=== PATIENT | male | born 1975 | race Caucasian/White ===

== ENCOUNTER 2016-05-08 20:29 | Emergency (ER) | payer MEDICARE, OTHER ==
[~2016-05-08 20:29] MED LIST: CYMB30CA PO; DULO60 PO; LITH300 PO; QUET200 PO; QUET25 PO; TOPI100 PO; TRAZ100T4 PO
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
[2016-05-08] MEDS ORDERED: ACETAMINOPHEN/HYDROcodone 325 MG/5 MG TAB PO ONE (20:45)
[2016-05-08] MEDS ORDERED: IBUPROFEN 800 MG TAB PO ONE (20:45)
[2016-05-08 21:00] VITALS: BP 157/95; PULSE 105; RESP 16; TEMP 97.8; O2SAT 95
[2016-05-08] MEDS ORDERED: NEUR600T PO (21:19)
[2016-05-08] MEDS ORDERED: SERO300T PO (21:19)
[2016-05-08] MEDS ORDERED: CYMB60CA PO (21:19)
[2016-05-08] MEDS ORDERED: SERO100T PO (21:19)
[2016-05-08] MEDS ORDERED: TRAZ300T2 PO (21:19)
[2016-05-08] MEDS ORDERED: HYDR-3535 PO (21:19)
[2016-05-08] MEDS ORDERED: TOPA100T11 PO (21:19)
[2016-05-08] MEDS ORDERED: CLON1 PO (21:19)
[2016-05-08 21:22] LABS: AUTOMATED NEUTROPHIL # 5.5 TH/MM3 (1.8-7.7); BASOPHIL # 0.1 TH/MM3 (0-0.2); BASOPHIL % 1.2 % (0.0-2.0); EOSINOPHIL # 0.4 TH/MM3 (0-0.4); EOSINOPHIL % 4.5 % (0.0-4.0); HEMATOCRIT 42.3 % (39.0-51.0); LYMPH % 22.6 % (9.0-44.0); LYMPHOCYTE # 2.1 TH/MM3 (1.0-4.8); MEAN CELL VOLUME 89.8 FL (80.0-100.0); MEAN CORPUSCULAR HEMOGLOBIN 32.4 PG (27.0-34.0); MONO % 14.1 % (0.0-8.0); NEUT % 57.6 % (16.0-70.0); PLATELET COUNT 263 TH/MM3 (150-450); RED BLOOD COUNT 4.71 MIL/MM3 (4.50-5.90); RED CELL DISTRIBUTION WIDTH 13.1 % (11.6-17.2); WHITE BLOOD COUNT 9.5 TH/MM3 (4.0-11.0)
[2016-05-08 21:26] LABS: HEMO FLAGS DIFF FINAL
[2016-05-08 21:42] LABS: ANION GAP 9 MEQ/L (5-15)
[2016-05-08 21:45] LABS: ALKALINE PHOSPHATASE 131 U/L (45-117); ALT (GPT) 234 U/L (12-78); AST (GOT) 292 U/L (15-37); BICARBONATE 25.3 MEQ/L (21.0-32.0); BLOOD UREA NITROGEN 9 MG/DL (7-18); CHLORIDE 103 MEQ/L (98-107); GLOMERULAR FILTRATION RATE 94 ML/MIN (>89); POTASSIUM 3.1 MEQ/L (3.5-5.1); SODIUM (NA) 137 MEQ/L (136-145); TOTAL BILIRUBIN ADULT 0.9 MG/DL (0.2-1.0)
[2016-05-08 22:29] LABS: ACETAMINOPHEN LESS THAN 2.0 MCG/ML (10.0-30.0)
[2016-05-08 23:38] VITALS: BP 115/74; PULSE 93; RESP 14; O2SAT 95
[2016-05-08 23:41] LABS: AMPHETAMINE, URINE NEG (NEG); BARBITURATES, URINE NEG (NEG); COCAINE, URINE NEG (NEG)
[2016-05-09 01:15] VITALS: BP 148/83; PULSE 99; RESP 18; TEMP 98.7; O2SAT 97
[2016-05-09 06:21] VITALS: BP 148/68; PULSE 100; RESP 19; TEMP 98.9; O2SAT 98
[2016-05-09 10:05] VITALS: BP 98/54; PULSE 83; RESP 18
[2016-05-09 12:39] VITALS: BP 98/54; PULSE 85; RESP 18
--- NOTE | 2016-05-09 12:48 | PD.CONS ---
Provisional Diagnosis Admission Date [place] I. Substance-induced mood disorder, history of bipolar disorder History of Present Illness Service Psychiatry Consult Requested By EDMD Reason for Consult Michelle norman Primary Care Physician No Primary Care Physician [facility] Patient is a 40-year-old white male well known to us from multiple prior contacts comes here under Martinez act by the [place] [employer] dated 05/08/16 1945 hrs. stating occurrence was found in his room and in [facility] facility unresponsive and had numerous pills molting in his bone along with an unused hypodermic needle next to him on the bed rico Reyna refuse to be transported and because of his refusal in the apparent use of narcotics because it was Michelle acted currently stated that he is prescribed Lortab appears to be abusing narcotics. Patient seen screened in the ED urine toxicology for positive for opiates and marijuana. At the present time patient sitting quietly in his room on J pod nurse Pat present throughout session patient denies suicidality homicidality voices or visions with this case the apparatus was there because her friend was over was going to do the intravenous drug use. Acknowledges frequent use of marijuana that it is medicinal for him. He states [facility], this described various medications at that facility. He states his compliant with appointments and with the medication. At the present time patient does not meet Martinez criteria will lift the Michelle act. As okay by psych for discharge. Patient to continue his own schedule medications, follow-up through [facility] outpatient. Also will make referral to and [facility] for voluntary substance abuse assessment Review of Systems Except as stated in HPI: all other systems reviewed are Neg Past Family Social History Coded Allergies: Prozac (Verified Allergy, Intermediate, 05/08/16) PT STATES "IT MAKES ME SEE A YOUNG GIRL" Toradol (Verified Allergy, Intermediate, Hives, 05/08/16) Beef (Verified Allergy, Unknown, 05/08/16) Penicillin (Verified Adverse Reaction, Severe, VOMITING, 05/08/16) Codeine (Verified Adverse Reaction, Intermediate, Nausea/Vomiting, 05/08/16) Past Medical History Patient medically cleared ED Reported Medications Hydrocodone-Acetaminophen (Lortab)10-325 Mg Tab1 Tab PO Q6H PRN (PAIN) Ref 0 05/08/16 Clonazepam (Klonopin)1 Mg Tab1 Mg PO QID #90 TAB Ref 0 05/08/16 Gabapentin (Neurontin)600 Mg [id number] Mg PO DAILY #60 TAB Ref 0 05/08/16 Trazodone 300 Mg [id number] Mg PO HS #30 TAB Ref 0 05/08/16 Topiramate (Topamax)100 Mg [id number] Mg PO BID #60 TAB Ref 0 05/08/16 Quetiapine (Seroquel)300 Mg [id number] Mg PO HS #30 TAB Ref 0 05/08/16 Quetiapine (Seroquel)100 Mg Rxe441 Mg PO DAILY #30 TAB Ref 0 05/08/[address] (Cymbalta DR)60 Mg Capdr60 Mg PO DAILY #30 CAP Ref 0 05/08/16 Family History Unknown at this time Social History Patient lives in [facility] patient's history of multiple visits to [facility] Patient's Strengths (min. 2) Patient verbal able to access health care Physical Exam Patient seen screened in ED exam reviewed and agreed with Vital Signs Vital Signs Date Time Temp Pulse Resp B/P Pulse Ox O2 Delivery O2 Flow Rate FiO2 05/09/16 10:05 83 18 98/54 Room Air 05/09/16 06:21 98.9 98 Mental Status Examination Alert oriented white male appears some's older than stated age somewhat irritable, and entitled Appearance Slightly disheveled Speech: Unremarkable, Rapid Orientation: x3 Memory: Unremarkable Thought Process: Logical Thought Content: Unremarkable Hallucination Type: None Attention and Concentration: Other (fair) Suicidal Ideation: No Previous Suicide Attempts: No Homicidal Ideation: No Previous Homicide Attempts: No Insight: Poor Judgement: Poor Affect: Other (slight increased range and intensity) Mood: Euthymic (to somewhat irritable) Motor Activity: Normal gait Assessment & Plan Problem List: (1) History of bipolar disorder ICD Code: Z86.59 (2) Substance induced mood disorder ICD Code: F19.94 Assessment & Plan Estimated LOS: days patient does not meet Martinez criteria will lift Michelle act as okay by psych for discharge ability to clear and stable, patient continues own schedule medication follow-up through [facility] outpatient. Also recommend referral to , and referral to [facility] for outpatient voluntary substance abuse assessment Discharge Planning See above Request HC Surrog/Guard Advoc?: No Mack Fang MD May 09, 2016 12:48
== END 2016-05-09 15:31 | disposition home or self-care (01) ==
LOC: NEPC 20:29 → NEPJ 05-09 15:31
DX: F43.20 Adjustment disorder, unspecified (principal); F19.94 Other psychoactive substance use, unspecified with psychoactive substance-induced mood disorder; F41.8 Other specified anxiety disorders; F31.9 Bipolar disorder, unspecified
CPT/HCPCS: 80053; 80307; 85025; 99283; G0480; 80320; 80329

== ENCOUNTER 2016-08-01 18:48 | Emergency (ER) | payer MEDICARE, OTHER ==
[~2016-08-01] VITALS: Ht 180.3 cm; Wt 81.0 kg
[~2016-08-01 18:48] MED LIST changes: +CLON1 PO; -CYMB30CA PO; +CYMB60CA PO; -DULO60 PO; +HYDR-3535 PO; -LITH300 PO; +NEUR600T PO; -QUET200 PO; -QUET25 PO; +SERO100T PO; +SERO300T PO; +TOPA100T11 PO; -TOPI100 PO; -TRAZ100T4 PO; +TRAZ300T2 PO
[2016-08-01 18:57] VITALS: BP 116/78; PULSE 107; RESP 18; TEMP 99.3; O2SAT 97
[2016-08-01] MEDS ORDERED: SODIUM CHLOR 0.9% 1000 ML INJ 1,000 ML IV SCH (19:14)
[2016-08-01 19:15] VITALS: O2SAT 97
[2016-08-01] MEDS ORDERED: ONDANSETRON HCL 4 MG/2 ML VIAL IVP ONE (19:15)
[2016-08-01] MEDS ORDERED: MORPHINE SULFATE 4 MG/ML INJ IV PUSH ONE (19:15)
[2016-08-01] MEDS ORDERED: SODIUM CHLORIDE 0.9% FLUSH 10 ML FLUSH IV FLUSH PRN (19:15)
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
[2016-08-01 19:42] LABS: CHLORIDE 107 MEQ/L (98-107); POTASSIUM 3.2 MEQ/L (3.5-5.1); SODIUM (NA) 143 MEQ/L (136-145)
[2016-08-01 19:43] LABS: AUTOMATED NEUTROPHIL # 5.7 TH/MM3 (1.8-7.7); BASOPHIL # 0.1 TH/MM3 (0-0.2); BASOPHIL % 1.5 % (0.0-2.0); EOSINOPHIL % 0.3 % (0.0-4.0); HEMATOCRIT 39.2 % (39.0-51.0); HEMO FLAGS DIFF FINAL; LYMPH % 18.8 % (9.0-44.0); LYMPHOCYTE # 1.5 TH/MM3 (1.0-4.8); MEAN CELL VOLUME 89.5 FL (80.0-100.0); MEAN CORPUSCULAR HEMOGLOBIN 30.5 PG (27.0-34.0); MONO % 7.2 % (0.0-8.0); NEUT % 72.2 % (16.0-70.0); PLATELET COUNT 258 TH/MM3 (150-450); RED BLOOD COUNT 4.38 MIL/MM3 (4.50-5.90); RED CELL DISTRIBUTION WIDTH 11.8 % (11.6-17.2); WHITE BLOOD COUNT 7.9 TH/MM3 (4.0-11.0)
[2016-08-01 19:47] LABS: ANION GAP 10 MEQ/L (5-15); BICARBONATE 25.7 MEQ/L (21.0-32.0); BLOOD UREA NITROGEN 7 MG/DL (7-18)
[2016-08-01 19:50] LABS: ALT (GPT) 48 U/L (12-78); AST (GOT) 55 U/L (15-37); GLOMERULAR FILTRATION RATE 115 ML/MIN (>89)
[2016-08-01 19:51] LABS: TOTAL BILIRUBIN ADULT 0.6 MG/DL (0.2-1.0)
[2016-08-01 19:53] LABS: ALKALINE PHOSPHATASE 72 U/L (45-117)
[2016-08-01 19:58] LABS: BLOOD, URINE NEG (NEG); GLUCOSE,URINE NEG (NEG); KETONE, URINE 15 mg/dL (NEG); NITRITE,URINE NEG (NEG)
[2016-08-01 20:08] LABS: URINE COLOR YELLOW (YELLW/STRAW)
[2016-08-01 20:10] LABS: COMMENT (UR) CULT NOT INDICATED; CULTURE IF INDICATED CULT NOT INDICATED; RBC, URINE 0-3 /hpf (0-3); SQUAMOUS EPITHELIAL CELL URINE 0-5 /hpf (0-5)
[2016-08-01 20:25] VITALS: BP 113/74; PULSE 72; RESP 16; O2SAT 97
[2016-08-01] MEDS: DICYCLOMINE HCL 20 MG/2 ML VIAL IM ONE (21:00)
--- NOTE | 2016-08-01 21:11 | RADHPO ---
EXAM DATE/TIME: 08/01/2016 20:29 [place] COMPARISON: No previous studies available for comparison. INDICATIONS : Diffuse abdominal pain for three days. IV CONTRAST: 97 cc Omnipaque 350 (iohexol) IV ORAL CONTRAST: No oral contrast ingested. RADIATION DOSE: 8.57 CTDIvol (mGy) MEDICAL HISTORY : Hepatitis C. Renal calculi. SURGICAL HISTORY : None. ENCOUNTER: Initial ACUITY: 3 days PAIN SCALE: 7/10 LOCATION: Abdomen. TECHNIQUE: Volumetric scanning of the abdomen and pelvis was performed. Using automated exposure control and ad justment of the mA and/or kV according to patient size, radiation dose was kept as low as reasonably achievable to obtain optimal diagnostic quality images. FINDINGS: Lung bases clear except minimal dependent atelectasis. No acute findings in the liver, spleen, adrena ls, kidneys or pancreas. No calcified gallstones or biliary ductal dilatation. Again seen are numerou s collaterals in the retroperitoneum probably from chronic occlusion of the IVC. CONCLUSION: 1. No acute findings. 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 Mild fatty liver. Dm Nuno MD on August 01, 2016 at 21:06 Board Certified Radiologist. This report was verified electronically.
[2016-08-01] MEDS ORDERED: BENT20TA PO (21:19)
[2016-08-01] MEDS ORDERED: ZOFR4TAB3 SL (21:20)
[2016-08-01] MEDS ORDERED: IOHEXOL 350 MG/ML 10 ML VIAL (for RAD DIAG) IV ONE (21:21)
[2016-08-01 21:43] VITALS: BP 117/69
== END 2016-08-01 22:00 | disposition home or self-care (01) ==
LOC: PHED 18:48
DX: R10.9 Unspecified abdominal pain (principal); R11.2 Nausea with vomiting, unspecified; M54.9 Dorsalgia, unspecified; M79.604 Pain in right leg; R31.9 Hematuria, unspecified; F17.200 Nicotine dependence, unspecified, uncomplicated; Z87.19 Personal history of other diseases of the digestive system; Z87.448 Personal history of other diseases of urinary system; Z87.39 Personal history of other diseases of the musculoskeletal system and connective tissue; Z86.19 Personal history of other infectious and parasitic diseases; Z86.69 Personal history of other diseases of the nervous system and sense organs; Z86.59 Personal history of other mental and behavioral disorders
CPT/HCPCS: 74177; 80053; 81001; 83690; 85025; 96361; 96372; 96374; 96375; 99284; J0500; J2270; J2405; J7030; Q9967

== ENCOUNTER 2017-11-22 03:16 | Inpatient (IN) ==
--- NOTE | 2017-11-22 05:13 | ED ---
HPI General Chief Complaint: Psychiatric Symptoms Stated Complaint: Psych Time Seen by Provider: 11/23/17 09:25 Source: patient Mode of arrival: ambulatory Limitations: no limitations History of Present Illness HPI Narrative: 41-year-old white male presents emergency department on a voluntary basis for psychological evaluation. Patient states that he has been increasingly depressed after from his and moving to [place] from [place]. He states that he is been for 8 years but has been with his for many more years before this. He had adopted his 's 1-year -old son when the got together. He states that he just found out that his had cheated on him with the biological father of her son. He had moved down to [place] and has been living with his father. Patient has a history of seizure disorder and hepatitis C. He reports that he has been taking his medicines intermittently. He also reports that he started using IV Dilaudid over the last 2 weeks. He allegedly has attempted to overdose on Dilaudid several times. He last injected 3 Dilaudid's earlier yesterday but patient states that really did not do anything. He denies any other ingestions. Patient has had some skin infection to the left wrist from IV drug abuse. He does report subjective fever and chills. No chest pain or shortness of breath. No nausea vomiting. No abdominal pain or urinary symptoms. Symptoms are moderate. Exacerbated by drug abuse and social issues. No alleviating factors. Related Data Previous Rx's Medication Instructions Recorded lithium carbonate 300 mg PO BID #30 cap 11/25/17 mirtazapine 15 mg PO HS #14 tab 11/25/17 quetiapine 25 mg PO TID@08,12,16 #45 tab 11/25/17 quetiapine 100 mg PO HS #14 tab 11/25/17 topiramate [Topamax] 100 mg PO BID #30 tab 11/25/17 Allergies Allergy/AdvReac Type Severity Reaction Status Date / Time fluoxetine Allergy Intermediate Hives Verified 11/22/17 04:49 ketorolac Allergy Intermediate Hives Verified 11/22/17 04:49 penicillin G AdvReac Severe VOMITING Verified 11/22/17 04:49 codeine AdvReac Intermediate Nausea/Vomi Verified 11/22/17 04:49 ting Review of Systems ROS Unobtainable All other systems reviewed negative except as stated in HPI [facility] Medical History Medical History Hepatitis C (Acute) Patient denies medical problems (Acute) Seizures (Acute) Surgical History Surgical History No history of previous surgery (Acute) Social History Social History Substance History: Active Abuse Second Hand Smoke Exposure: No Smoking Status: Current every day smoker Tobacco Type: Cigarettes How Often Do You Have a Drink Containing Alcohol: Never Recent Travel in [facility] within the Last 8 Weeks: No Recent Out of Country Travel within the Last 8 Weeks: No Substance Abuse Detail Opiates: Substance Use Status: Active Route Used Substance Abuse: Intravenously Reason for Use: Hurt Myself Immunization History Tetanus Immunization: <5 Years Hx Influenza Vaccine This Season: No Exam Narrative Exam Narrative: GENERAL: Well-nourished, well-developed patient. SKIN: Warm and dry. Patient has track garnica in both extremities. There is evidence of a skin infection which appears to have opened and drained on the left wrist. It does not look acutely infected at this time. HEAD: Normocephalic and atraumatic. EYES: No scleral icterus. No injection or drainage. ENT: No nasal drainage noted. Mucous membranes pink. Airway patent. NECK: Supple, trachea midline. Moves head freely without obvious discomfort. CARDIOVASCULAR: Regular rate and rhythm without murmurs, gallops, or rubs. RESPIRATORY: Breath sounds equal bilaterally. No accessory muscle use. GASTROINTESTINAL: Abdomen soft, non-tender, nondistended. EXTREMITIES: No cyanosis or edema. BACK: Nontender without obvious deformity. No CVA tenderness. NEURO: Patient is alert and oriented. no sensorimotor deficits. Nonfocal. Normal speech. PSYCH: No delusions. No auditory or visual hallucinations. Course Initial Documented Vital Signs Temperature 98.8 F 11/22/17 03:27 Pulse Rate 104 H 11/22/17 03:27 Respiratory Rate 16 11/22/17 03:27 Blood Pressure 144/83 H 11/22/17 03:27 Pulse Oximetry 98 11/22/17 03:27 Last Documented Vital Signs Temperature 97.6 F 11/25/17 07:43 Pulse Rate 97 H 11/25/17 07:43 Respiratory Rate 18 11/25/17 07:43 Blood Pressure 122/75 11/25/17 07:43 Pulse Oximetry 98 11/25/17 07:43 Medical Decision Making MDM Narrative Medical decision making narrative: We will perform routine laboratory tests for medical clearance. Patient has what appears to be a abscess which is open and drained on his left wrist but does not look acutely infected at this time. Patient seen and examined by me Dr. Dillard at 2130 on 11/22. was informed by nursing that patient wished to leave without seeing the psychiatrist. He tells me he attempted to kill himself with dilaudid last night. States he wishes to see the psychiatrist still and will stay voluntary status. Asks for something to sleep. Differential Diagnosis Differential Diagnosis: MDM: High Differential diagnoses: Schizophrenia, schizoaffective disorder, bipolar, anxiety, depression, adjustment reaction, mood disorder NOS, ODD, depressive disorder NOS, dementia, dementia with agitation, psychosis NOS, substance induced mood disorder, DMDD, Asperger syndrome, infection,electrolyte abnormality, malingering. Mental health screening discussed with the patient. Psychiatric screen ordered. Lab Data Result diagrams: 11/22/17 05:21 11/24/17 05:29 Lab Results 11/22/17 11/22/17 11/22/17 Range/Units 05:21 05:21 05:27 WBC 11.0 (4.0-11.0) th/mm3 RBC 4.45 L (4.50-5.90) mil/mm3 Hgb 13.7 (13.0-17.0) gm/dL Hct 39.4 (39.0-51.0) % MCV 88.4 (80.0-100.0) fL MCH 30.8 (27.0-34.0) pg MCHC 34.8 (32.0-36.0) % RDW 12.8 (11.6-17.2) % Plt Count 355 (150-450) th/mm3 MPV 7.3 (7.0-11.0) fL Neut % (Auto) 51.2 (16.0-70.0) % Lymph % (Auto) 33.5 (9.0-44.0) % [place] % (Auto) 11.8 H (0.0-8.0) % Eos % (Auto) 2.4 (0.0-4.0) % Baso % (Auto) 1.1 (0.0-2.0) % Neut # (Auto) 5.6 (1.8-7.7) th/mm3 Lymph # (Auto) 3.7 (1.0-4.8) th/mm3 [place] # (Auto) 1.3 H (0.0-0.9) th/mm3 Eos # (Auto) 0.3 (0.0-0.4) th/mm3 Baso # (Auto) 0.1 (0.0-0.2) th/mm3 WBC Differential . Differential Comment Auto diff final Sodium 137 (136-145) meq/L Potassium 3.1 L (3.5-5.1) meq/L Chloride 103 (98-107) meq/L Carbon Dioxide 25.4 (21.0-32.0) meq/L Anion Gap 9 (5-15) meq/L BUN 8 (7-18) mg/dL Creatinine 0.81 (0.60-1.30) mg/dL Estimated GFR Greater than 89 (>89) mL/min Random Glucose 93 (74-106) mg/dL Hemoglobin A1c (4.3-6.0) % Calcium 9.2 (8.5-10.1) mg/dL Total Bilirubin 0.5 (0.2-1.0) mg/dL AST 34 (15-37) U/L ALT 41 (12-78) U/L Alkaline Phosphatase 92 (45-117) U/L Total Protein 8.4 H (6.4-8.2) g/dL Albumin 3.6 (3.4-5.0) g/dL Triglycerides (42-150) mg/dL Cholesterol (120-200) mg/dL LDL Cholesterol, Calc (0-99) mg/dL HDL Cholesterol (40.0-60.0) mg/dL Cholesterol/HDL Ratio Ratio TSH 1.060 (0.358-3.740) uIU/mL Urine Opiates Screen Pos H (Neg) Ur Barbiturates Screen Neg (Neg) Ur Amphetamines Screen Neg (Neg) U Benzodiazepines Scrn Neg (Neg) Urine Cocaine Screen Neg (Neg) U Cannabinoids Screen Neg (Neg) Serum Alcohol Less than 3 (0-5) mg/dL 07/26/18 07/26/18 Range/Units 05:29 05:29 WBC (4.0-11.0) th/mm3 RBC (4.50-5.90) mil/mm3 Hgb (13.0-17.0) gm/dL Hct (39.0-51.0) % MCV (80.0-100.0) fL MCH (27.0-34.0) pg MCHC (32.0-36.0) % RDW (11.6-17.2) % Plt Count (150-450) th/mm3 MPV (7.0-11.0) fL Neut % (Auto) (16.0-70.0) % Lymph % (Auto) (9.0-44.0) % [place] % (Auto) (0.0-8.0) % Eos % (Auto) (0.0-4.0) % Baso % (Auto) (0.0-2.0) % Neut # (Auto) (1.8-7.7) th/mm3 Lymph # (Auto) (1.0-4.8) th/mm3 [place] # (Auto) (0.0-0.9) th/mm3 Eos # (Auto) (0.0-0.4) th/mm3 Baso # (Auto) (0.0-0.2) th/mm3 WBC Differential Differential Comment Sodium 141 (136-145) meq/L Potassium 3.1 L (3.5-5.1) meq/L Chloride 106 (98-107) meq/L Carbon Dioxide 26.3 (21.0-32.0) meq/L Anion Gap 9 (5-15) meq/L BUN 6 L (7-18) mg/dL Creatinine 0.74 (0.60-1.30) mg/dL Estimated GFR Greater than 89 (>89) mL/min Random Glucose 99 (74-106) mg/dL Hemoglobin A1c 5.3 (4.3-6.0) % Calcium 8.9 (8.5-10.1) mg/dL Total Bilirubin (0.2-1.0) mg/dL AST (15-37) U/L ALT (12-78) U/L Alkaline Phosphatase (45-117) U/L Total Protein (6.4-8.2) g/dL Albumin (3.4-5.0) g/dL Triglycerides 57 (42-150) mg/dL Cholesterol 168 (120-200) mg/dL LDL Cholesterol, Calc 118 H (0-99) mg/dL HDL Cholesterol 38.4 L (40.0-60.0) mg/dL Cholesterol/HDL Ratio 4.37 Ratio TSH (0.358-3.740) uIU/mL Urine Opiates Screen (Neg) Ur Barbiturates Screen (Neg) Ur Amphetamines Screen (Neg) U Benzodiazepines Scrn (Neg) Urine Cocaine Screen (Neg) U Cannabinoids Screen (Neg) Serum Alcohol (0-5) mg/dL Imaging Data Radiologist's impression: Head CT 11/25/17 00:00 CONCLUSION: Cervical Spine X-Ray 11/25/17 00:18 CONCLUSION: Negative examination. Knee X-Ray 11/25/17 00:18 CONCLUSION: Negative examination Lumbar Spine X-Ray 11/25/17 00:18 CONCLUSION: Negative examination. Thoracic Spine X-Ray 11/25/17 00:18 CONCLUSION: Negative examination. Discharge Plan Discharge Disposition Patient Disposition: 01 Discharge Home Discharge Condition Condition: Fair Discharge Order Discharge Orders: Discharge Order (Routine); Ordered 11/25/17 Ordered By: Mack Fang Discharge Details Anticipated Discharge Date: 11/25/17 Physicians Team ED Provider: Safia Mancilla ED Midlevel Provider: Dm Howard Primary Care Provider: Primary Care Mary Ann,Jeanne Attending Provider: Mack Fang Other Providers: Breezy White ED Status: Left Department Discharge Information Discharge Date/Time: 11/23/17 11:01
[2017-11-22 05:42] LABS: Baso # (Auto) 0.1 th/mm3 (0.0-0.2); Baso % (Auto) 1.1 % (0.0-2.0); Eos # (Auto) 0.3 th/mm3 (0.0-0.4); Eos % (Auto) 2.4 % (0.0-4.0); Hematocrit 39.4 % (39.0-51.0); Hemoglobin 13.7 gm/dL (13.0-17.0); Lymph # (Auto) 3.7 th/mm3 (1.0-4.8); Lymph % (Auto) 33.5 % (9.0-44.0); Mean Corpuscular HGB Conc 34.8 % (32.0-36.0); Mean Corpuscular Hemoglobin 30.8 pg (27.0-34.0); Mean Corpuscular Volume 88.4 fL (80.0-100.0); Mean Platelet Volume 7.3 fL (7.0-11.0); Mono # (Auto) 1.3 th/mm3 (0.0-0.9); Mono % (Auto) 11.8 % (0.0-8.0); Neut # (Auto) 5.6 th/mm3 (1.8-7.7); Neut % (Auto) 51.2 % (16.0-70.0); Platelet Count 355 th/mm3 (150-450); Red Blood Count 4.45 mil/mm3 (4.50-5.90); Red Cell Distribution Width 12.8 % (11.6-17.2)
[2017-11-22 05:48] LABS: Amphetamine Screen,Urine Neg (Neg); Barbiturate Screen,Urine Neg (Neg); Cannabinoid Screen,Urine Neg (Neg); Cocaine Screen,Urine Neg (Neg)
[2017-11-22 05:58] LABS: Opiate Screen,Urine Pos (Neg)
[2017-11-22 06:09] LABS: Albumin 3.6 g/dL (3.4-5.0); Anion Gap 9 meq/L (5-15); Aspartate Aminotransferase 34 U/L (15-37); Blood Urea Nitrogen 8 mg/dL (7-18); Calcium 9.2 mg/dL (8.5-10.1); Carbon Dioxide 25.4 meq/L (21.0-32.0); Chloride 103 meq/L (98-107); Glomerular Filtration Rate Greater Than 89 mL/min (>89); Glucose,Random 93 mg/dL (74-106); Potassium 3.1 meq/L (3.5-5.1); Sodium 137 meq/L (136-145)
[2017-11-22 06:10] LABS: Alanine Aminotransferase 41 U/L (12-78)
[2017-11-22 06:20] LABS: Alkaline Phosphatase 92 U/L (45-117); Total Protein 8.4 g/dL (6.4-8.2)
[2017-11-22] MEDS ORDERED: LORazepam 1 MG Tablet PO ONE (21:30)
--- NOTE | 2017-11-23 10:19 | ED ---
HPI - Psych - General Source: patient Mode of arrival: ambulatory Limitations: no limitations - History of Present Illness MD complaint: suicidal ideation, feels depressed Onset (ago): day(s) Duration: constant History of same: Yes Relieving factors: none Exacerbating factors: drug use, other (medication noncompliance) Context: recent drug abuse Associated psychiatric symptoms: depression Associated symptoms: denies other symptoms Treatments prior to arrival: none If self harm: admits thoughts of self harm - General Chief Complaint: Psychiatric Symptoms Stated Complaint: Psych Time Seen by Provider: 11/23/17 09:25 - History of Present Illness HPI Narrative: History of Present Illness HPI Narrative: 41-year-old white, male, living with his father, on SSI,with history of bipolar disorder, non medication compliant no previous suicide attempts who presents to emergency department on a voluntary basis requesting a psychological evaluation. Patient reports to ED staff states that he has been increasingly depressed after from his and moving to [place] from [place] although this divorce happened approximately 8 years ago. He reports that he has been taking his medicines intermittently. He also reports that he started using IV Dilaudid over the last 2 weeks. He allegedly has attempted to overdose on Dilaudid several times. He last injected 3 Dilaudid's earlier yesterday but patient states that really did not do anything. He denies any other ingestions. EMR reviewed, Current toxicology is positive for opiates. Patient denies he uses opiates as a recreational drug but rather as a suicidal attempt. Patient is seen. he is alert, oriented, speech of normal rate and tone. Irritable mood. Describes feeling depressed, hopeless, suicidal. He also reports that he has been hearing voices that tell him to kill himself. He does not appear internally preoccupied. Most of the questions are answered with " I don't know". he becomes angry when he is pressed for specifics. He has not been taking medications for " months" and reason " I don't know". Reports impaired sleep, low level of energy, fair appetite. remainder of psychiatric ROS is negative. (Marissa León) - Related Data Home Medications Medication Instructions Recorded Confirmed topiramate [Topamax] 100 mg PO BID 11/17/17 11/22/17 clonazepam [Klonopin] 1 mg PO TID 11/22/17 11/22/17 Allergies Allergy/AdvReac Type Severity Reaction Status Date / Time fluoxetine Allergy Intermediate Hives Verified 11/22/17 04:49 ketorolac Allergy Intermediate Hives Verified 11/22/17 04:49 penicillin G AdvReac Severe VOMITING Verified 11/22/17 04:49 codeine AdvReac Intermediate Nausea/Vomi Verified 11/22/17 04:49 ting PMFSH - History History Provided By: Patient - Medical History Medical History: Medical History (Last Reviewed 11/22/17 @ 05:12 by MELVI Gaviria) Hepatitis C Patient denies medical problems Seizures - Surgical History Surgical History: Surgical History (Last Reviewed 11/22/17 @ 05:12 by MELVI Gaviria) No history of previous surgery - Tobacco History Second Hand Smoke Exposure: No Tobacco Use In Past 30 Days: Yes Smoking Status: Current every day smoker Tobacco Type: Cigarettes - Alcohol History How Often Do You Have a Drink Containing Alcohol: Never - Substance Use History Substance History: Active Abuse - Substance Use Type Opiates Status: Active Route Used: Intravenously Frequency: 3 GRAMS TO KILL SELF YESTERDAY Reason for Use: Hurt Myself - Travel History Recent Travel in the [place] Within the Last 8 Weeks: No Recent Travel Out of the Country Within the Last 8 Weeks: No - Immunization History Tetanus Immunization: <5 Years Hx Influenza Vaccine This Season: No Psychiatric History - Psychiatric History Psychiatric Treatment History: History of Psychiatric Treatment, History of Hospitalization in a Psychiatric Facility, History of Community Mental Health Treatment (poor compliance) History of Inpatient Treatment: Yes Firearms in Home: No - Psychiatric History Reports first psychiatric hospitalization t age 14 years after the of his mother. Since patient moved to [place] in 2015 he has had 3 hospitalizations here at [facility] (Marissa León) Physical Exam - General Limitations: no limitations Mental Status Examination Consciousness: Alert Orientation: x4 Motor Activity: Normal gait Speech: Unremarkable Language: Adequate Fund of Knowledge: Adequate Attention and Concentration: Adequate Memory: Unremarkable Mood: Irritable, Other (depressed, easily frustrated) Affect: Irritable Thought Process & Associations: Intact, Logical, Goal directed Thought Content: Appropriate Hallucination Type: Auditory (Reports command type hallucinations that tell him to kill himself. ) Delusion Type: None Suicidal Ideation: Yes Suicidal Plan: Yes (inject Dilaudid) Suicidal Intention: Yes Homicidal Ideation: No Homicidal Plan: No Homicidal Intention: No Insight: Poor Judgment: Impulsive Initial Documented Vital Signs Temperature 98.8 F 11/22/17 03:27 Pulse Rate 104 H 11/22/17 03:27 Respiratory Rate 16 11/22/17 03:27 Blood Pressure 144/83 H 11/22/17 03:27 Pulse Oximetry 98 11/22/17 03:27 Last Documented Vital Signs Temperature 98.7 F 11/22/17 22:12 Pulse Rate 79 11/22/17 22:12 Respiratory Rate 16 11/22/17 22:12 Blood Pressure 131/80 11/22/17 22:12 Pulse Oximetry 99 11/22/17 22:12 MDM - Psych - Diagnosis (1) Bipolar disorder Status: Acute - Lab Data Result diagrams: 11/22/17 05:21 11/22/17 05:21 - [facility] Narrative Medical decision making narrative: History of Present Illness HPI Narrative: 41-year-old white, male, living with his father, on SSI,with history of bipolar disorder, non medication compliant no previous suicide attempts who presents to emergency department on a voluntary basis requesting a psychological evaluation. Patient also reporting that he is hearing voices command type that tell him to harm self. Does not appear internally preoccupied. patient is irritable with poor frustration tolerance. Patient will be admitted to inpatient psychiatric unit for safety , stabilization and for initiation of medication. (Marissa León) - Lab Data Lab Results 11/22/17 11/22/17 11/22/17 Range/Units 05:21 05:21 05:27 WBC 11.0 (4.0-11.0) th/mm3 RBC 4.45 L (4.50-5.90) mil/mm3 Hgb 13.7 (13.0-17.0) gm/dL Hct 39.4 (39.0-51.0) % MCV 88.4 (80.0-100.0) fL MCH 30.8 (27.0-34.0) pg MCHC 34.8 (32.0-36.0) % RDW 12.8 (11.6-17.2) % Plt Count 355 (150-450) th/mm3 MPV 7.3 (7.0-11.0) fL Neut % (Auto) 51.2 (16.0-70.0) % Lymph % (Auto) 33.5 (9.0-44.0) % [place] % (Auto) 11.8 H (0.0-8.0) % Eos % (Auto) 2.4 (0.0-4.0) % Baso % (Auto) 1.1 (0.0-2.0) % Neut # (Auto) 5.6 (1.8-7.7) th/mm3 Lymph # (Auto) 3.7 (1.0-4.8) th/mm3 [place] # (Auto) 1.3 H (0.0-0.9) th/mm3 Eos # (Auto) 0.3 (0.0-0.4) th/mm3 Baso # (Auto) 0.1 (0.0-0.2) th/mm3 WBC Differential . Differential Comment Auto diff final Sodium 137 (136-145) meq/L Potassium 3.1 L (3.5-5.1) meq/L Chloride 103 (98-107) meq/L Carbon Dioxide 25.4 (21.0-32.0) meq/L Anion Gap 9 (5-15) meq/L BUN 8 (7-18) mg/dL Creatinine 0.81 (0.60-1.30) mg/dL Estimated GFR Greater than 89 (>89) mL/min Random Glucose 93 (74-106) mg/dL Calcium 9.2 (8.5-10.1) mg/dL Total Bilirubin 0.5 (0.2-1.0) mg/dL AST 34 (15-37) U/L ALT 41 (12-78) U/L Alkaline Phosphatase 92 (45-117) U/L Total Protein 8.4 H (6.4-8.2) g/dL Albumin 3.6 (3.4-5.0) g/dL TSH 1.060 (0.358-3.740) uIU/mL Urine Opiates Screen Pos H (Neg) Ur Barbiturates Screen Neg (Neg) Ur Amphetamines Screen Neg (Neg) U Benzodiazepines Scrn Neg (Neg) Urine Cocaine Screen Neg (Neg) U Cannabinoids Screen Neg (Neg) Serum Alcohol Less than 3 (0-5) mg/dL
[2017-11-23] MEDS ORDERED: LORazepam 0.5 MG Tablet PO PRN (10:45)
[2017-11-23] MEDS ORDERED: Bisacodyl 10 MG Supp RECTAL PRN (10:45)
[2017-11-23] MEDS: Aluminum/Magnesium/Simethacone Susp 30 ML UDC PO PRN (18:11)
[2017-11-23] MEDS: LORazepam 0.5 MG Tablet PO PRN (21:03)
[2017-11-23] MEDS: Senna/Docusate Sodium 8.6/50 MG Tablet PO SCH (21:03)
[2017-11-23] MEDS: Acetaminophen 325 MG Tablet PO PRN (23:05)
[2017-11-24 07:41] LABS: Anion Gap 9 meq/L (5-15); Blood Urea Nitrogen 6 mg/dL (7-18); Calcium 8.9 mg/dL (8.5-10.1); Carbon Dioxide 26.3 meq/L (21.0-32.0); Chloride 106 meq/L (98-107); Glomerular Filtration Rate Greater Than 89 mL/min (>89); Glucose,Random 99 mg/dL (74-106); Potassium 3.1 meq/L (3.5-5.1); Sodium 141 meq/L (136-145)
[2017-11-24 07:43] LABS: Cholesterol 168 mg/dL (120-200)
[2017-11-24 07:44] LABS: Chol/HDL Ratio 4.37 Ratio; HDL Cholesterol 38.4 mg/dL (40.0-60.0); LDL Cholesterol,Calculated 118 mg/dL (0-99); Triglycerides 57 mg/dL (42-150)
[2017-11-24] MEDS: LORazepam 0.5 MG Tablet PO PRN (09:08)
[2017-11-24] MEDS: Senna/Docusate Sodium 8.6/50 MG Tablet PO SCH (09:08)
[2017-11-24] MEDS ORDERED: Haloperidol Inj 5 MG/ML Ampul IV.PUSH PRN (13:18)
--- NOTE | 2017-11-24 13:33 | P.HPPSY ---
Provisional Diagnosis Admission Date: November 23, 2017 10:39 [place] I.: Bipolar disorder most recent episode depression severe with psychotic features Competence Certification of Person's Competence To Provide Express and Informed Consent I have personally examined Logan Morejon, a person being served at [facility] on, November 24, 2017 1326. Express and informed consent means consent voluntarily given in writing, by a competent person, after sufficient explanation and disclosure of the subject matter involved to enable the person to make a knowing and willful decision without any element of force, fraud, deceit, duress, or other form of constraint or coercion. This person is 18 years of age or older, is not now known to be incompetent to consent to treatment with a guardian advocate, and does not have a health care surrogate or proxy currently making medical treatment decisions. I have found this person to be one of the following: [] Competent to provide express and informed consent, as defined above, for voluntary admission to this facility and is competent to provide express and informed consent for treatment. He/she has the consistent capacity to make well reasoned, willful, and knowing decisions concerning his or her medical or mental health treatment. The person fully and consistently understands the purpose of the admission for examination/placement and is fully capable of personally exercising all rights assured [place] [] Incompetent to provide express and informed consent to voluntary admission, and this is incompetent to provide express and informed consent to treatment. The person must be transferred to involuntary status and a petition for a guardian advocate filed with the Circuit Court. [xxx] Refusing to provide express and informed consent to voluntary admission but is competent to provide express and informed consent for treatment. The person must be discharged or transferred to involuntary status. Form shall be completed within 24 hours of a person's arrival at the receiving facility and filed in the clinical record of each person: 1. Admitted on a voluntary basis 2. Permitted to provide express and informed consent to his/her own treatment 3. Allowed to transfer from involuntary to voluntary status 4. Prior to permitting a person to consent to his or her own treatment after having been previously found incompetent to consent to treatment. History of Present Illness Capacity: Lacks capacity (Patient lacks capacity to sign for admission patient has capacity to sign for medication) History of Present Illness: Patient is a 41-year-old white male who comes here voluntarily with a history of increased depression patient seen screen in the emergency department urine toxicology positive for opiates negative for other screening negative for alcohol. Prior to my seeing patient patient complained of severe anxiety became somewhat intrusive and irritable and demanding of the nurse he was given 0.5 mg Ativan yesterday evening and again this morning. Prior to my seeing him he was quite critical of the dosing in the interval of the medications. Patient seen by me with medical student Penny and in nurse Lesley. Patient sitting quietly in his bed crosslegged in no acute distress. Giving a history of living with his father for the past few months after returning from [place] where he states he was for the past 1-1/2 years helping care for his dying brother who has since . It appears more recently patient has been living with a friend however he now endorses increased depression with both auditory and visual hallucinations increased suicidal ideation intent to the point where he bought Dilaudid on the street and injected himself intravenous with the Dilaudid in an attempt to kill himself. He states he has had depressive episodes similar to this in the past. He states that if offered he would take the suicide pill at this time. He is somewhat vague about past psychiatric history though acknowledges being admitted to the psychiatric unit in [place] within the past year or so but he was somewhat vague about what medications were offered to him. He does reluctantly acknowledge past misuse of cocaine and marijuana, none recently denies any alcohol use. Denies any detox rehab or legal issues related to anything. Of interest upon review of EMR patient was seen here 08/06/17 in the ED and toxicology positive for benzodiazepines cocaine and marijuana. Patient also seen by me in consultation on 05/09/16 urine toxicology 05/08/16 positive for opiates and marijuana. Patient' s had multiple positive urine toxicology is for marijuana and opiates and benzodiazepines prior to this. Patient denies any physical or sexual abuse though he did get into fights with his older brother. Patient states his brother is bipolar. At. Patient's med reconciliation shows scheduled Klonopin and Topamax. Though his urine toxicology is negative for benzodiazepines. Patient became somewhat irritated with me as we discussed medication management in my reluctance to prescribe scheduled benzodiazepines or opiates. I focused on addressing medications that would target his symptoms. He acknowledges a prior being diagnosed with bipolar disorder having manic-type episodes that responded to lithium. We will place the patient on lithium 300 mg twice daily. We will add Seroquel 25 mg 3 times a day 100 mg at bedtime. And Remeron 15 mg at bedtime. There is a possibility of long-term benzodiazepine use we will also order the ciwa protocol. We will refrain from any other benzos or opiates we will offer her Atarax also. Hopeless be fairly short stay and we can resolve this patient's depression suicidality allow him to return to his home with his father with follow-up through [facility] act - Inpatient Certification I certify that the inpatient services were ordered in accordance with Medicare regulations governing the order. This includes certification that hospital inpatient services are reasonable and necessary and in the case of services not specified as inpatient-only under 42 CFR 419.22(n), that they are appropriately provided as inpatient services in accordance to with the 2-midnight benchmark under 43 CFR 412.3(e) I certify that inpatient psychiatric hospital services are medically necessary. Evaluation and treatment and/or diagnostic testing are expected to improve the patient's condition. The patient needs on a daily basis, active treatment furnished directly by or requiring the supervision of inpatient psychiatric facility personnel. Estimated Total Length of Stay (Days): 7 Plans for Post Hospital Care: Home Review of Systems All other systems reviewed negative except as stated in HPI [facility] - History History Provided By: Patient - Medical History Medical History: Medical History (Last Reviewed 11/22/17 @ 05:12 by MELVI Gaviria) Hepatitis C Patient denies medical problems Seizures - Surgical History Surgical History: Surgical History (Last Reviewed 11/22/17 @ 05:12 by MELVI Gaviria) No history of previous surgery - Tobacco History Second Hand Smoke Exposure: No Tobacco Use In Past 30 Days: Yes Smoking Status: Current every day smoker Tobacco Type: Cigarettes - Alcohol History How Often Do You Have a Drink Containing Alcohol: Never - Substance Use History Substance History: Active Abuse - Substance Use Type Other Type: tobacco/cigarrettes Status: Active Route Used: Inhalation Frequency: daily Reason for Use: Calm Down Opiates Status: Active Route Used: Intramuscular Frequency: 3-4 times daily Reason for Use: Hurt Myself - Travel History Recent Travel in the [facility] Within the Last 8 Weeks: No Recent Travel Out of the Country Within the Last 8 Weeks: No - Immunization History Tetanus Immunization: <5 Years Hx Influenza Vaccine This Season: No Quality Measures - Psychiatric History Psychological trauma history: Patient denies physical or sexual abuse Violence risk to others in the last 6 months: Low Violence risk to self in the last 6 months: Patient attempted suicide by overdosing with Dilaudid - Substance Abuse History Drug or alcohol use in the past 12 months: Chronic use of opiates and benzodiazepines and marijuana - Patient Strengths Patient's strengths (minimum of 2): Patient verbal able access healthcare Medications and Allergies Active Medications: Active Medications Acetaminophen (Tylenol) 650 mg PO Q6H PRN PRN Reason: PAIN SCALE 1 TO 10 Last Admin: 11/23/17 23:05 Dose: 650 mg Al Hydrox/Mg Hydrox/Simethicone (Mag-Al Plus Susp Liq) 30 ml PO Q6H PRN PRN Reason: DYSPEPSIA Last Admin: 11/23/17 18:11 Dose: 30 ml Al Hydroxide/Mg Hydroxide (Milk Of Magnesia Liq) 30 ml PO Q12H PRN PRN Reason: Mild Constipation Flumazenil (Romazecon Inj) 0.2 mg IV.PUSH Q1M PRN PRN Reason: OVERSEDATION Haloperidol Lactate (Haldol Inj) 1 mg IV.PUSH Q15M PRN PRN Reason: for severe agitation [place] Carbonate ([place] Carbonate) 300 mg PO BID FELIPA Lorazepam (Ativan) 1 mg PO Q4H PRN PRN Reason: for CIWA 8-10 Lorazepam (Ativan) 2 mg PO Q2H PRN PRN Reason: for CIWA 11-14 Lorazepam (Ativan Inj) 2 mg IV.PUSH Q2H PRN PRN Reason: for CIWA 11-14 Lorazepam (Ativan Inj) 2 mg IV.PUSH Q1H PRN PRN Reason: for CIWA 15-20 Lorazepam (Ativan Inj) 2 mg IV.PUSH Q15M PRN PRN Reason: for CIWA > 20 Lorazepam (Ativan Inj) 1 mg IV.PUSH Q4H PRN PRN Reason: for CIWA 8-10 Mirtazapine (Remeron) 15 mg PO HS FELIPA Quetiapine Fumarate (Seroquel) 25 mg PO TID@08,12,16 FELIPA Quetiapine Fumarate (Seroquel) 100 mg PO HS FELIPA Topiramate (Topamax) 100 mg PO BID FELIPA Allergies Allergy/AdvReac Type Severity Reaction Status Date / Time fluoxetine Allergy Intermediate Hives Verified 11/22/17 04:49 ketorolac Allergy Intermediate Hives Verified 11/22/17 04:49 penicillin G AdvReac Severe VOMITING Verified 11/22/17 04:49 codeine AdvReac Intermediate Nausea/Vomi Verified 11/22/17 04:49 ting Home Medications Medication Instructions Recorded Confirmed Type topiramate [Topamax] 100 mg PO BID 11/17/17 11/22/17 History clonazepam [Klonopin] 1 mg PO TID 11/22/17 11/22/17 History Results - Labs CBC & Chem 7: 11/22/17 05:21 11/24/17 05:29 Labs: Laboratory Results - last 24 hr 11/24/17 05:29 Sodium 141 Potassium 3.1 L Chloride 106 Carbon Dioxide 26.3 Anion Gap 9 BUN 6 L Creatinine 0.74 Estimated GFR Greater than 89 Random Glucose 99 Calcium 8.9 Triglycerides 57 Cholesterol 168 LDL Cholesterol, Calc 118 H HDL Cholesterol 38.4 L Cholesterol/HDL Ratio 4.37 Exam Vital signs: Vital Signs 11/23/17 18:00 11/24/17 00:05 11/24/17 06:11 Temperature 98.7 F 98.6 F Pulse Rate 85 86 Respiratory Rate 18 16 20 Blood Pressure 123/78 141/93 H Pulse Oximetry 96 98 Intake & Output 11/23/17 11/24/17 11/24/17 18:59 06:59 18:59 Intake Total 480 / 480 360 / 360 Balance 480 / 480 360 / 360 Weight 80 kg Intake: Oral 480 / 480 360 / 360 Other: Date of Last Bowel Movement 11/23/17 11/24/17 Weight On Admission 80 kg Narrative: Patient is seen in his bed crosslegged style is in no acute distress, no respiratory distress, no complaints of chest pain, no complaints of abdominal pain, patient moving all 4 extremities without difficulty Mental Status Examination Appearance: Appropriate Consciousness: Alert Orientation: x4 Motor Activity: Normal gait Speech: Unremarkable Language: Adequate Fund of Knowledge: Adequate Attention and Concentration: Adequate Memory: Unremarkable Mood: Oppositional, Irritable, Other (depressed, easily frustrated) Affect: Other (Slight increased range and intensity) Thought Process & Associations: Intact, Logical, Goal directed Thought Content: Appropriate Hallucination Type: Auditory (Reports command type hallucinations that tell him to kill himself. ), Visual Delusion Type: None Suicidal Ideation: Yes (Patient states he would take the suicide pill) Suicidal Plan: Yes (inject Dilaudid) Suicidal Intention: Yes (He states he did take the suicide pill) Homicidal Ideation: No Homicidal Plan: No Homicidal Intention: No Insight: Poor Judgment: Poor Assessment and Plan - Assessment (1) Bipolar disorder Code(s): F31.9 - Bipolar disorder, unspecified Status: Acute (2) Bipolar I disorder, most recent episode depressed, severe w psychosis Code(s): F31.5 - Bipolar disorder, current episode depressed, severe, with psychotic features Status: Acute - Plan Plan: Estimated LOS: 5-7[] days Patient does meet criteria for involuntary inpatient psychiatric hospitalization. We will adjust medications as mentioned above. Also place patient on the ciwa protocol. Hopefully we can be follow-up Justification for Continued Inpatient Stay: At this time patient would decompensate a place to a lower level of care Discharge Planning: Return home follow-up [facility] act Request Healthcare Surrogate/Guardian Advocate?: No
[2017-11-24] MEDS: LORazepam 1 MG Tablet PO PRN ×2 (14:17→21:17)
[2017-11-24] MEDS: Topiramate 100 MG Tablet PO SCH ×2 (14:17→21:17)
[2017-11-24] MEDS: QUEtiapine 25 MG Tablet PO SCH (16:26)
[2017-11-24 16:27] LABS: Hemoglobin A1c 5.3 % (4.3-6.0)
[2017-11-24] MEDS ORDERED: Mirtazapine 15 MG Tablet PO SCH (21:00)
[2017-11-24] MEDS ORDERED: QUEtiapine 100 MG Tablet PO SCH (21:00)
[2017-11-24] MEDS: Aluminum/Magnesium/Simethacone Susp 30 ML UDC PO PRN (21:16)
[2017-11-24] MEDS: Acetaminophen 325 MG Tablet PO PRN (21:16)
--- NOTE | 2017-11-25 01:05 | CT ---
EXAM DATE: 11/25/2017 12:56 AM EDT AGE/SEX: 41 years / Male INDICATIONS: Un-witnessed seizure. CLINICAL DATA: This is the patient's initial encounter. Patient reports that signs and symptoms have been present for 1 day and indicates a pain score of 5/10. MEDICAL/SURGICAL HISTORY: Hepatitis C. None. RADIATION DOSE: 56.35 CTDI (mGy) COMPARISON: [facility], CT BRAIN W/O CONTRAST, 08/10/2017. . TECHNIQUE: CT of the head without contrast. Using automated exposure control and adjustment of the mA and/or kV according to patient size, radiation dose was kept as low as reasonably achievable to ob tain optimal diagnostic quality images. DICOM format image data is available electronically for revi ew and comparison. FINDINGS: Cerebrum: The ventricles are normal for age. No evidence of midline shift, mass lesion, hemorrhage o r acute infarction. No extraaxial fluid collections are seen. Posterior Fossa: The cerebellum and brainstem are intact. The 4th ventricle is midline. The cerebe llopontine angle is unremarkable. Extracranial: The visualized portion of the orbits is intact. Skull: The calvaria is intact. No evidence of skull fracture. 1. No acute intracranial abnormality. . Electronically signed by: Drew Song MD 11/25/2017 1:03 AM EDT
[2017-11-25] MEDS: LORazepam 1 MG Tablet PO PRN (01:31)
[2017-11-25] MEDS: Acetaminophen 325 MG Tablet PO PRN ×2 (02:38→12:18)
--- NOTE | 2017-11-25 02:57 | XR ---
EXAM DATE: 11/25/2017 2:53 AM EDT AGE/SEX: 41 years / Male INDICATIONS: Pain. CLINICAL DATA: This is the patient's initial encounter. Patient reports that signs and symptoms have been present for 1 day and indicates a pain score of 6/10. MEDICAL/SURGICAL HISTORY: . Bipolar disorder. Seizures. Hepatitis C. Renal calculi. None. COMPARISON: [facility], KNEE RIGHT LTD (1 OR 2 VWS), 08/10/2017. . FINDINGS: Bony structures are intact and in normal alignment. Joints are intact without dislocation or signifi cant arthropathy. Osseous density is normal. Soft tissues are unremarkable. No radiopaque foreign bodies seen. CONCLUSION: Negative examination Electronically signed by: Drew Song MD 11/25/2017 2:56 AM EDT
--- NOTE | 2017-11-25 02:58 | XR ---
EXAM DATE: 11/25/2017 2:54 AM EDT AGE/SEX: 41 years / Male INDICATIONS: Pain. CLINICAL DATA: This is the patient's initial encounter. Patient reports that signs and symptoms have been present for 1 day and indicates a pain score of 5/10. MEDICAL/SURGICAL HISTORY: None. None. COMPARISON: [facility] [place], THORACIC SPINE AP/LAT/SW 3V, 11/25/2017. . FINDINGS: The vertebral bodies are in normal alignment without evidence of compression deformity. Bone density is normal for age. Soft tissues are grossly intact. CONCLUSION: Negative examination. Electronically signed by: Drew Song MD 11/25/2017 2:57 AM EDT
--- NOTE | 2017-11-25 02:59 | XR ---
EXAM DATE: 11/25/2017 2:57 AM EDT AGE/SEX: 41 years / Male INDICATIONS: Pain. CLINICAL DATA: This is the patient's initial encounter. Patient reports that signs and symptoms have been present for 1 day and indicates a pain score of 5/10. MEDICAL/SURGICAL HISTORY: None. None. COMPARISON: [facility] [place], LUMBAR SPINE COMPLETE W OBLIQUE, 11/25/2017. . FINDINGS: The vertebral bodies are in normal alignment without evidence of compression deformity. Bone density is normal for age. Soft tissues are grossly intact. CONCLUSION: Negative examination. Electronically signed by: Drew Song MD 11/25/2017 2:58 AM EDT
--- NOTE | 2017-11-25 02:59 | XR ---
EXAM DATE: 11/25/2017 2:56 AM EDT AGE/SEX: 41 years / Male INDICATIONS: Pain. CLINICAL DATA: This is the patient's initial encounter. Patient reports that signs and symptoms have been present for 1 day and indicates a pain score of 6/10. MEDICAL/SURGICAL HISTORY: None. None. COMPARISON: [facility], CT CERVICAL SPINE W/O CONTRAST, 08/10/2017. . FINDINGS: The vertebral bodies are in normal alignment without evidence of compression deformity. Bone density is normal for age. Soft tissues are grossly intact. CONCLUSION: Negative examination. Electronically signed by: Drew Song MD 11/25/2017 2:58 AM EDT
[2017-11-25] MEDS: Topiramate 100 MG Tablet PO SCH ×2 (09:56→10:34)
[2017-11-25] MEDS: QUEtiapine 25 MG Tablet PO SCH ×3 (09:56→12:18)
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
--- NOTE | 2017-11-25 12:18 | ECG ---
Date Performed: 11/24/2017 Time Performed: 12:48:40 PTAGE: 41 years EKG: Sinus rhythm BORDERLINE LEFT AXIS DEVIATION BORDERLINE ECG PREVIOUS TRACING : 02/14/2016 09.29 Since the previous tracing, no significant change noted DOCTOR: Ion Sandoval Interpretating Date/Time 11/25/2017 12:17:44
== END 2017-11-25 12:40 | disposition home or self-care (01) ==
LOC: NEPD 03:16 → NEDA 11-23 10:39 → H260 11-23 11:09
PROVIDERS: ADMIT Psychiatry & Neurology Psychiatry; ATTEND Psychiatry & Neurology Psychiatry

== ENCOUNTER 2017-12-04 19:01 | Observation (INO) ==
[2017-12-04] MEDS ORDERED: Sod Chloride 0.9% Inj 1,000 ML IV.SIG ONE ×2 (19:33→20:52)
[2017-12-04] MEDS ORDERED: Morphine Inj 4 MG/ML Vial IV.PUSH ONE ×2 (19:33→20:52)
--- NOTE | 2017-12-04 19:59 | ED ---
HPI General Chief Complaint: Abdominal Pain Stated Complaint: Abd pain Time Seen by Provider: 12/04/17 19:25 Source: patient Limitations: no limitations History of Present Illness HPI narrative: Patient is see the 1-year-old male, past medical history significant for bipolar disorder, hepatitis C, who presents with complaint of abdominal pain for the last 3 days. He states that he has had gradual onset of right-sided abdominal pain that has been worsening over the last 3 days. He has had nausea and several episodes of nonbilious, nonbloody emesis. He has also had several episodes of watery diarrhea and states that the last episode or 2 did have streaks of blood in it. He has not had fever but he has had chills. No chest pain or shortness of breath. No back pain. This is never happened before. He has not had previous abdominal surgeries. complaint: abdominal pain Onset (ago): day(s) Pain Consistency: constant Location: RUQ and RLQ Severity: moderate Quality: aching, fullness and sharp Radiation: none Migration to: no migration Relieving factors: nothing Exacerbating factors: movement Associated symptoms: nausea, vomiting, diarrhea and chills Treatments prior to arrival: other (tylenol) Related Data Previous Rx's Medication Instructions Recorded topiramate [Topamax] 100 mg PO BID #30 tab 11/25/17 Allergies Allergy/AdvReac Type Severity Reaction Status Date / Time fluoxetine Allergy Intermediate Hives Verified 11/22/17 04:49 ketorolac Allergy Intermediate Hives Verified 11/22/17 04:49 penicillin G AdvReac Severe VOMITING Verified 11/22/17 04:49 codeine AdvReac Intermediate Nausea/Vomi Verified 11/22/17 04:49 ting Review of Systems Except as stated in HPI: all other systems reviewed are negative Constitutional Reports chills and Denies fever(s) Eyes Denies blurry vision ENT Denies nasal congestion Cardiovascular Denies chest pain Respiratory Denies dyspnea Gastrointestinal Reports abdominal pain, Reports diarrhea, Reports nausea and Reports vomiting Genitourinary Denies flank pain Musculoskeletal Denies back pain Integumentary/Breasts Denies rash Neurologic Denies headache(s) Psychiatric Denies confusion Endocrine Reports fatigue PMFSH Medical History Medical History Hepatitis C (Acute) Seizures (Acute) Surgical History Surgical History No history of previous surgery (Acute) Social History Social History Substance History: No History of Abuse Second Hand Smoke Exposure: Yes Smoking Status: Current every day smoker Tobacco Type: Cigarettes How Often Do You Have a Drink Containing Alcohol: Never Recent Travel in [facility] within the Last 8 Weeks: No Recent Out of Country Travel within the Last 8 Weeks: No Immunization History Tetanus Immunization: <5 Years Hx Influenza Vaccine This Season: No Exam Narrative Exam Narrative: GENERAL: Ill-appearing male in no acute distress SKIN: Focused skin assessment warm/dry. No jaundice. No rashes. HEAD: Atraumatic. Normocephalic. EYES: Pupils equal and round. No scleral icterus. No injection or drainage. ENT: No nasal bleeding or discharge. Mucous membranes pink and dry. NECK: Trachea midline. No JVD. CARDIOVASCULAR: Tachycardic but regular. No murmur appreciated. Intact and equal peripheral pulses. RESPIRATORY: No accessory muscle use. Clear to auscultation. Breath sounds equal bilaterally. GASTROINTESTINAL: Abdomen soft, nondistended. Diffuse tenderness throughout most prominent in the right lower quadrant and the right upper quadrant. MUSCULOSKELETAL: No obvious deformities. No clubbing. No cyanosis. No edema. NEUROLOGICAL: Awake and alert. No obvious cranial nerve deficits. Motor grossly within normal limits. Normal speech. PSYCHIATRIC: Appropriate mood and affect; insight and judgment normal. Course Hospital Course: On patient arrival he was placed on a quality assurance monitor chassis and IV was established. He was given morphine and Zofran in addition to a fluid bolus. Labs, CT and ultrasound were ordered. Reevaluation(s) Reevaluation #1: Patient states that his pain has improved but has worsened yet again. He has not had any episodes of emesis nor diarrhea here. Heart rate is in the low 100s. Another liter of fluid and more morphine has been ordered. Time: 20:54 Initial Documented Vital Signs Temperature 98.3 F 12/04/17 19:21 Pulse Rate 111 H 12/04/17 19:21 Respiratory Rate 18 12/04/17 19:21 Blood Pressure 143/85 H 12/04/17 19:21 Pulse Oximetry 99 12/04/17 19:21 Last Documented Vital Signs Temperature 98.3 F 12/04/17 19:21 Pulse Rate 94 H 12/04/17 21:03 Respiratory Rate 16 12/04/17 21:03 Blood Pressure 143/83 H 12/04/17 21:03 Pulse Oximetry 100 12/04/17 21:03 Medical Decision Making MDM Narrative Medical decision making narrative: Patient is a 41-year-old male who presents with complaint of pain, nausea, vomiting, diarrhea for the last several days. He is tachycardic on arrival but afebrile with stable blood pressure. He was given a liter fluid and morphine IV after which he stated he felt better but continued to have pain with a heart rate in the 100s at which time this was repeated. Labs revealed slight hypokalemia but otherwise unremarkable. Ultrasound of the gallbladder was unremarkable. CT of the abdomen and pelvis did not show any acute findings. I discussed the case with Dr. Mac, hospitalist on-call, who agrees to observation admission for further rehydration and pain management. Differential Diagnosis Differential Diagnosis: Differential diagnosis includes acute cholecystitis, cholangitis, colitis, acute appendicitis, acute GI bleed, sepsis, cirrhosis. Medical Records Medical records reviewed: Yes I reviewed the patient's medical records. Review of the records reveal hepatitis C and recent admission to the hospital for bipolar disorder. Lab Data Lab results narrative: Labs consistent with dehydration and slight hypokalemia. Result diagrams: 12/04/17 19:50 12/04/17 19:50 Lab Results 12/04/17 12/04/17 12/04/17 Range/Units 19:50 19:50 19:50 WBC 10.6 (4.0-11.0) th/mm3 RBC 4.39 L (4.50-5.90) mil/mm3 Hgb 13.5 (13.0-17.0) gm/dL Hct 38.5 L (39.0-51.0) % MCV 87.8 (80.0-100.0) fL MCH 30.7 (27.0-34.0) pg MCHC 34.9 (32.0-36.0) % RDW 12.8 (11.6-17.2) % Plt Count 323 (150-450) th/mm3 MPV 7.3 (7.0-11.0) fL Neut % (Auto) 70.0 (16.0-70.0) % Lymph % (Auto) 21.5 (9.0-44.0) % Lee % (Auto) 7.7 (0.0-8.0) % Eos % (Auto) 0.1 (0.0-4.0) % Baso % (Auto) 0.7 (0.0-2.0) % Neut # (Auto) 7.4 (1.8-7.7) th/mm3 Lymph # (Auto) 2.3 (1.0-4.8) th/mm3 Lee # (Auto) 0.8 (0.0-0.9) th/mm3 Eos # (Auto) 0.0 (0.0-0.4) th/mm3 Baso # (Auto) 0.1 (0.0-0.2) th/mm3 WBC Differential . Differential Comment Auto diff final PT 10.7 (9.8-11.6) sec INR 1.1 Ratio APTT 27.6 (24.3-30.1) sec Sodium 142 (136-145) meq/L Potassium 3.2 L (3.5-5.1) meq/L Chloride 109 H (98-107) meq/L Carbon Dioxide 26.1 (21.0-32.0) meq/L Anion Gap 7 (5-15) meq/L BUN 4 L (7-18) mg/dL Creatinine 0.75 (0.60-1.30) mg/dL Estimated GFR Greater than 89 (>89) mL/min Random Glucose 101 (74-106) mg/dL Lactic Acid (0.4-2.0) mmol/L Calcium 9.0 (8.5-10.1) mg/dL Total Bilirubin 0.5 (0.2-1.0) mg/dL AST 31 (15-37) U/L ALT 37 (12-78) U/L Alkaline Phosphatase 89 (45-117) U/L Total Protein 8.1 (6.4-8.2) g/dL Albumin 3.6 (3.4-5.0) g/dL Lipase 106 (73-393) U/L Blood Type Blood Type Recheck Antibody Screen 12/04/17 12/04/17 Range/Units 19:50 19:50 WBC (4.0-11.0) th/mm3 RBC (4.50-5.90) mil/mm3 Hgb (13.0-17.0) gm/dL Hct (39.0-51.0) % MCV (80.0-100.0) fL MCH (27.0-34.0) pg MCHC (32.0-36.0) % RDW (11.6-17.2) % Plt Count (150-450) th/mm3 MPV (7.0-11.0) fL Neut % (Auto) (16.0-70.0) % Lymph % (Auto) (9.0-44.0) % Lee % (Auto) (0.0-8.0) % Eos % (Auto) (0.0-4.0) % Baso % (Auto) (0.0-2.0) % Neut # (Auto) (1.8-7.7) th/mm3 Lymph # (Auto) (1.0-4.8) th/mm3 Lee # (Auto) (0.0-0.9) th/mm3 Eos # (Auto) (0.0-0.4) th/mm3 Baso # (Auto) (0.0-0.2) th/mm3 WBC Differential Differential Comment PT (9.8-11.6) sec INR Ratio APTT (24.3-30.1) sec Sodium (136-145) meq/L Potassium (3.5-5.1) meq/L Chloride (98-107) meq/L Carbon Dioxide (21.0-32.0) meq/L Anion Gap (5-15) meq/L BUN (7-18) mg/dL Creatinine (0.60-1.30) mg/dL Estimated GFR (>89) mL/min Random Glucose (74-106) mg/dL Lactic Acid 1.2 (0.4-2.0) mmol/L Calcium (8.5-10.1) mg/dL Total Bilirubin (0.2-1.0) mg/dL AST (15-37) U/L ALT (12-78) U/L Alkaline Phosphatase (45-117) U/L Total Protein (6.4-8.2) g/dL Albumin (3.4-5.0) g/dL Lipase (73-393) U/L Blood Type A Negative Blood Type Recheck Required Antibody Screen Negative Imaging Data Attestation: I personally reviewed and interpreted this imaging study as follows : My impression: Gallbladder ultrasound is unremarkable. Radiologist's impression: Abdomen/Pelvis CT 12/04/17 19:33 CONCLUSION: 1. No obstruction, inflammatory changes or other acute abnormality. 2. 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 3. Mild atherosclerotic plaque of the abdominal aorta. No aneurysm. 4. Small, benign cysts of the left kidney. Gallbladder Ultrasound 12/04/17 19:33 CONCLUSION: No acute abnormality. Discharge Plan Discharge Disposition Patient Disposition: 30 Still Patient Discharge Condition Condition: Fair Discharge Details Diagnosis: Acute dehydration, Acute hypokalemia, Intractable abdominal pain Physicians Team ED Provider: Ashley Martinez Primary Care Provider: Primary Care Jeanne Reese Rxs /Orders / Referrals /Forms Prescriptions: No Action topiramate [Topamax] 100 mg Tablet 100 mg PO BID Qty: 30 RF: 0 Discharge Interventions Interventions: Vital Signs Last Done: 12/04/17 21:03 Status ED Status: With Doctor
--- NOTE | 2017-12-04 20:10 | US ---
EXAM DATE: 12/04/2017 8:05 PM EDT AGE/SEX: 41 years / Male INDICATIONS: RUQ pain. CLINICAL DATA: This is the patient's initial encounter. Patient reports that signs and symptoms have been present for 3 days and indicates a pain score of 10/10. MEDICAL/SURGICAL HISTORY: Hepatitis C. Seizures. None. COMPARISON: [facility] – [place] - LIVER, 02/22/2016. . MEASUREMENTS: Liver:__ 16.5 cm. Common Bile Duct:__ 4mm. FINDINGS: Liver: Parenchymal echogenicity is within normal limits. No focal hepatic lesion. No intrahepatic bi liary distention. Portal Vein: Normal flow velocity and direction seen in the main portal vein. Common Duct: No intraluminal mass or stone visualized. Gallbladder: Demonstrates no wall thickening or pericholecystic fluid. No stones visualized. Pancreas: The visualized portions are within normal limits Right Kidney: Normal size and echotexture. No focal renal lesion. No hydronephrosis. Other: None CONCLUSION: No acute abnormality. Electronically signed by: Mack Noriega MD 12/04/2017 8:09 PM EDT
[2017-12-04 20:19] LABS: Baso # (Auto) 0.1 th/mm3 (0.0-0.2); Baso % (Auto) 0.7 % (0.0-2.0); Eos % (Auto) 0.1 % (0.0-4.0); Hematocrit 38.5 % (39.0-51.0); Hemoglobin 13.5 gm/dL (13.0-17.0); Lymph # (Auto) 2.3 th/mm3 (1.0-4.8); Lymph % (Auto) 21.5 % (9.0-44.0); Mean Corpuscular HGB Conc 34.9 % (32.0-36.0); Mean Corpuscular Hemoglobin 30.7 pg (27.0-34.0); Mean Corpuscular Volume 87.8 fL (80.0-100.0); Mean Platelet Volume 7.3 fL (7.0-11.0); Mono # (Auto) 0.8 th/mm3 (0.0-0.9); Mono % (Auto) 7.7 % (0.0-8.0); Neut # (Auto) 7.4 th/mm3 (1.8-7.7); Platelet Count 323 th/mm3 (150-450); Red Blood Count 4.39 mil/mm3 (4.50-5.90); Red Cell Distribution Width 12.8 % (11.6-17.2); White Blood Count 10.6 th/mm3 (4.0-11.0)
[2017-12-04 20:20] LABS: Activated Partial Thrombo Time 27.6 sec (24.3-30.1); INR 1.1 Ratio; Prothrombin Time 10.7 sec (9.8-11.6)
[2017-12-04 20:28] LABS: Albumin 3.6 g/dL (3.4-5.0); Anion Gap 7 meq/L (5-15); Aspartate Aminotransferase 31 U/L (15-37); Blood Urea Nitrogen 4 mg/dL (7-18); Carbon Dioxide 26.1 meq/L (21.0-32.0); Chloride 109 meq/L (98-107); Glomerular Filtration Rate Greater Than 89 mL/min (>89); Glucose,Random 101 mg/dL (74-106); Lipase 106 U/L (73-393); Potassium 3.2 meq/L (3.5-5.1); Sodium 142 meq/L (136-145)
[2017-12-04 20:29] LABS: Alanine Aminotransferase 37 U/L (12-78)
[2017-12-04 20:31] LABS: Alkaline Phosphatase 89 U/L (45-117); Total Protein 8.1 g/dL (6.4-8.2)
--- NOTE | 2017-12-04 20:33 | CT ---
EXAM DATE: 12/04/2017 8:26 PM EDT AGE/SEX: 41 years / Male INDICATIONS: Right sided abdominal pain with diarrhea. CLINICAL DATA: This is the patient's initial encounter. Patient reports that signs and symptoms have been present for 1 day and indicates a pain score of 6/10. MEDICAL/SURGICAL HISTORY: Hepatitis C. Seizures None. ORAL CONTRAST: No oral contrast ingested. RADIATION DOSE: 9.24 CTDI (mGy) COMPARISON: [facility], CT ABDOMEN & PELVIS W CONTRAST, 08/01/2016. . TECHNIQUE: Multiple contiguous axial images were obtained through the abdomen and pelvis following b olus infusion of 89 ml Omnipaque 350 (iohexol) nonionic water-soluble contrast as a single exam dos e. No oral contrast ingested. Using automated exposure control and adjustment of the mA and/or kV ac cording to patient size, radiation dose was kept as low as reasonably achievable to obtain optimal di agnostic quality images. DICOM format image data is available electronically for review and comparis on. FINDINGS: The liver, spleen, pancreas, adrenal glands and right kidney all appear normal. There are couple smal l cysts again seen of the left kidney. CT appearance of the gallbladder is within normal limits. No obstruction or acute inflammatory changes are seen of the gastrointestinal tract. The appendix is well-visualized, normal. No free fluid or free air. No lymphadenopathy. Scattered patchy atherosclerotic plaque of the abdominal aorta. No aneurysm. 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 Visualized lung bases are clear. No acute bony abnormality demonstrated. L5 is partially sacralized a nd with chronic degenerative changes. CONCLUSION: 1. No obstruction, inflammatory changes or other acute abnormality. 2. 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 3. Mild atherosclerotic plaque of the abdominal aorta. No aneurysm. 4. Small, benign cysts of the left kidney. Electronically signed by: Mack Noriega MD 12/04/2017 8:32 PM EDT
[2017-12-04 21:08] LABS: Bilirubin,Urine Negative (Negative); Clarity,Urine Clear (Clear); Glucose,Urine (UA) Negative (Negative); Leukocyte Esterase,Urine Negative (Negative); Nitrite,Urine Negative (Negative); PH,Urine 7.5 (5.0-8.5); Urobilinogen,Urine 0.2 mg/dL (Less than 2)
[2017-12-04] MEDS ORDERED: Temazepam 15 MG Capsule PO PRN (21:15)
[2017-12-04] MEDS ORDERED: Bisacodyl 10 MG Supp RECTAL PRN (21:15)
[2017-12-04] MEDS ORDERED: Acetaminophen 325 MG Tablet PO PRN (21:15)
[2017-12-04 21:16] LABS: Color,Urine Straw (Yellw/Straw)
--- NOTE | 2017-12-04 21:17 | P.HPIM ---
History of Present Illness Primary Care Physician: No Primary Care Physician History of Present Illness: This is a 41-year-old male with a PMH of Bipolar Disorder, Hepatitis C, Benzo Dependence, h/o Drug Seeking Behavior and Alcohol Abuse-quit 2wks ago who presented to the ER w/ complaints of abdominal pain, nausea/vomiting and diarrhea x3 days. Denies fever or chills. No sick contacts. On arrival, BP 143/85, HR 111, O2 sat 99% on RA, Afebrile. CBC unremarkable. INR 1.1. Chemistry essentially unremarkable except for K+ 3.2. UA negative. CT Abdomen/ Pelvis with no obstruction, chronic IVC occlusion with collaterals again noted. Gallbladder US negative. S/p Morphine x2 in ER w/ minimal improvement in pain complaints and persistent tachycardia. - Diagnosis (1) Intractable abdominal pain (2) Hypokalemia (3) Acute dehydration Review of Systems PAST FAMILY HISTORY: Reviewed. No h/o DM or CAD All other systems reviewed negative except as stated in HPI PMFSH - History History Provided By: Patient - Medical History Medical History: Medical History (Last Reviewed 12/04/17 @ 20:03 by Ashley Martinez MD) Hepatitis C Seizures - Surgical History Surgical History: Surgical History (Last Reviewed 12/04/17 @ 20:03 by Ashley Martinez MD) No history of previous surgery - Tobacco History Second Hand Smoke Exposure: Yes Tobacco Use In Past 30 Days: Yes Smoking Status: Current every day smoker Tobacco Type: Cigarettes - Alcohol History How Often Do You Have a Drink Containing Alcohol: Never - Substance Use History Substance History: No History of Abuse - Travel History Recent Travel in the [facility] Within the Last 8 Weeks: No Recent Travel Out of the Country Within the Last 8 Weeks: No - Immunization History Tetanus Immunization: <5 Years Hx Influenza Vaccine This Season: No Medications and Allergies Active Medications: Active Medications Sodium Chloride (Ns Flush) 2 ml IV.FLUSH PRN PRN PRN Reason: FLUSH AFTER USING IV ACCESS Allergies Allergy/AdvReac Type Severity Reaction Status Date / Time fluoxetine Allergy Intermediate Hives Verified 11/22/17 04:49 ketorolac Allergy Intermediate Hives Verified 11/22/17 04:49 penicillin G AdvReac Severe VOMITING Verified 11/22/17 04:49 codeine AdvReac Intermediate Nausea/Vomi Verified 11/22/17 04:49 ting Exam Vital signs: Vital Signs 08/05/18 19:21 12/04/17 21:03 Temperature 98.3 F Pulse Rate 111 H 94 H Respiratory Rate 18 16 Blood Pressure 143/85 H 143/83 H Pulse Oximetry 99 100 Intake & Output 12/04/17 12/04/17 12/05/17 06:59 18:59 06:59 Intake Total 1000 / 1000 Balance 1000 / 1000 Weight 81.647 kg Intake: IV 1000 / 1000 NS Inj 1,000 ML @ Wide Open IV. 1000 / 1000 SIG BOLUS ONE Rx#:[id number] Narrative: PE: GENERAL: in no acute distress. HEENT: PERRLA, EOMI. No scleral icterus or conjunctival pallor. No lid lag or facial droop. CARDIOVASCULAR: Regular rate and rhythm. No obvious murmurs to auscultation. No chest tenderness to palpation. RESPIRATORY: No obvious rhonchi or wheezing. Clear to auscultation. Breath sounds equal bilaterally. GASTROINTESTINAL: Abdomen soft, diffuse tenderness to palpation, nondistended. BS normal. MUSCULOSKELETAL: Extremities without clubbing, cyanosis, or edema. No obvious deformities. NEUROLOGICAL: Awake, alert and oriented x4. No focal neurologic deficits. Moving both upper and lower extremities spontaneously. Results - Labs CBC & Chem 7: 12/04/17 19:50 12/04/17 19:50 Labs: Short CBC 12/04/17 Range/Units 19:50 WBC 10.6 (4.0-11.0) th/mm3 Hgb 13.5 (13.0-17.0) gm/dL Hct 38.5 L (39.0-51.0) % Plt Count 323 (150-450) th/mm3 BMP 12/04/17 19:50 Sodium 142 Potassium 3.2 L Chloride 109 H Carbon Dioxide 26.1 BUN 4 L Creatinine 0.75 Calcium 9.0 Liver Function 12/04/17 Range/Units 19:50 Total Bilirubin 0.5 (0.2-1.0) mg/dL AST 31 (15-37) U/L ALT 37 (12-78) U/L Alkaline Phosphatase 89 (45-117) U/L Albumin 3.6 (3.4-5.0) g/dL - Imaging Impressions Abdomen/Pelvis CT 12/04/17 19:33 CONCLUSION: 1. No obstruction, inflammatory changes or other acute abnormality. 2. 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 3. Mild atherosclerotic plaque of the abdominal aorta. No aneurysm. 4. Small, benign cysts of the left kidney. Gallbladder Ultrasound 12/04/17 19:33 CONCLUSION: No acute abnormality. Caprini VTE Risk Assessment Caprini VTE Risk Assessment: No/Low Risk (score <= 1) Caprini Risk Assessment Model: Point Value = 1 Point Value = 2 Point Value = 3 Point Value = 5 Age 41-60 Minor surgery BMI > 25 kg/m2 Swollen legs Varicose veins or History of unexplained or recurrent spontaneous Oral contraceptives or hormone replacement Sepsis (< 1 month) Serious lung disease, including pneumonia (< 1 month) Abnormal pulmonary function Acute myocardial infarction Congestive heart failure (< 1 month) History of inflammatory bowel disease Medical patient at bed rest Age 61-74 Arthroscopic surgery Major open surgery (> 45 min) Laparoscopic surgery (> 45 min) Malignancy Confined to bed (> 72 hours) Immobilizing plaster cast Central venous access Age >= 75 History of VTE Family history of VTE Factor V Leiden Prothrombin [id number] Lupus anticoagulant Anticardiolipin antibodies Elevated serum homocysteine Heparin-induced thrombocytopenia Other congenital or acquired thrombophilia Stroke (< 1 month) Elective arthroplasty Hip, pelvis, or leg fracture Acute spinal cord injury (< 1 month) Prophylaxis Regimen: Total Risk Factor Score Risk Level Prophylaxis Regimen 0-1 Low Early ambulation 2 Moderate Order ONE of the following: *Sequential Compression Device (SCD) *Heparin 5000 units SQ BID 3-4 Higher Order ONE of the following medications: *Heparin 5000 units SQ TID *Enoxaparin/Lovenox 40 mg SQ daily (WT < 150 kg, CrCl > 30 mL/min) *Enoxaparin/Lovenox 30 mg SQ daily (WT < 150 kg, CrCl > 10-29 mL/min) *Enoxaparin/Lovenox 30 mg SQ BID (WT < 150 kg, CrCl > 30 mL/min) AND/OR *Sequential Compression Device (SCD) 5 or more Highest Order ONE of the following medications: *Heparin 5000 units SQ TID (Preferred with Epidurals) *Enoxaparin/Lovenox 40 mg SQ daily (WT < 150 kg, CrCl > 30 mL/min) *Enoxaparin/Lovenox 30 mg SQ daily (WT < 150 kg, CrCl > 10-29 mL/min) *Enoxaparin/Lovenox 30 mg SQ BID (WT < 150 kg, CrCl > 30 mL/min) AND *Sequential Compression Device (SCD) Assessment and Plan - Assessment (1) Intractable abdominal pain Code(s): R10.9 - Unspecified abdominal pain Status: Acute (2) Hypokalemia Code(s): E87.6 - Hypokalemia Status: Acute (3) Acute dehydration Code(s): E86.0 - Dehydration Status: Acute - Plan A/P: 1. Intractable Abd Pain: c/o abdominal pain, nausea/vomiting and diarrhea, likely Gastroenteritis, although caution w/ h/o Drug Seeking Behavior noted extensively in chart. CT Abd/Pelvis w/ no acute findings, Gallbladder US negative, images reviewed. Labs reviewed and essentially unremarkable, LFTs normal. 2. Dehydration: Persistent tachycardia, mildly improved after IVF, will continue w/ IVF for hydration, U/a negative, monitor I/O. 3. Hypokalemia: K+ 3.2, will give K+ replacement and recheck in am. 4. DVT Prophylaxis: SCD/Teds 5. Social work for d/c planning as needed 6. Case discussed w/ ER physician at length, labs/records/imaging reviewed by me.
[2017-12-04 21:18] LABS: Specific Gravity,Urine 1.008 (1.002-1.035)
[2017-12-04] MEDS: Sod Chloride 0.9% Inj 1,000 ML IV.CONT SCH (22:13)
[2017-12-05] MEDS: Morphine Inj 4 MG/ML Vial IV.PUSH PRN ×4 (00:19→20:49)
[2017-12-05 08:51] LABS: Baso # (Auto) 0.1 th/mm3 (0.0-0.2); Baso % (Auto) 1.3 % (0.0-2.0); Eos # (Auto) 0.2 th/mm3 (0.0-0.4); Eos % (Auto) 1.8 % (0.0-4.0); Hemoglobin 12.7 gm/dL (13.0-17.0); Lymph # (Auto) 2.5 th/mm3 (1.0-4.8); Lymph % (Auto) 27.9 % (9.0-44.0); Mean Corpuscular HGB Conc 34.4 % (32.0-36.0); Mean Corpuscular Hemoglobin 30.9 pg (27.0-34.0); Mean Corpuscular Volume 89.7 fL (80.0-100.0); Mean Platelet Volume 7.7 fL (7.0-11.0); Mono # (Auto) 0.7 th/mm3 (0.0-0.9); Mono % (Auto) 7.9 % (0.0-8.0); Neut # (Auto) 5.5 th/mm3 (1.8-7.7); Neut % (Auto) 61.1 % (16.0-70.0); Platelet Count 286 th/mm3 (150-450); Red Blood Count 4.12 mil/mm3 (4.50-5.90); Red Cell Distribution Width 12.8 % (11.6-17.2)
--- NOTE | 2017-12-05 09:20 | P.PN ---
Subjective Interval history: Follow-up for abdominal pain, nausea/vomiting, diarrhea. The patient reports continued intractable constant right-sided abdominal pain. He has difficulty describing his pain. He rates the pain as a 10/10. He denies any vomiting but does report persistent nausea. He has not had a bowel movement since prior to his arrival. Reports subjective fevers and sweats overnight. He is requesting pain medication. He does not recall ever having an EGD. He states he might have had a colonoscopy many years ago but he does not remember the results. He has no other medical complaints at this time. Physical Exam Vital signs: Vital Signs 12/04/17 19:21 12/04/17 21:03 12/04/17 22:10 Temperature 98.3 F Pulse Rate 111 H 94 H 84 Respiratory Rate 18 16 16 Blood Pressure 143/85 H 143/83 H 129/77 Pulse Oximetry 99 100 12/04/17 23:31 12/05/17 00:25 12/05/17 04:00 Temperature 98.6 F 98.5 F Pulse Rate 88 78 Respiratory Rate 16 22 17 Blood Pressure 146/77 H 138/82 Pulse Oximetry 99 98 12/05/17 07:43 Temperature 97.6 F Pulse Rate 73 Respiratory Rate 16 Blood Pressure 119/65 Pulse Oximetry 98 Intake & Output 12/04/17 12/05/17 12/05/17 18:59 06:59 18:59 Intake Total 1000 / 1000 Balance 1000 / 1000 Weight 81.647 kg Intake: IV 1000 / 1000 NS Inj 1,000 ML @ Wide Open IV. 1000 / 1000 SIG BOLUS ONE Rx#:[id number] Other: # Voids 2 Date of Last Bowel Movement 12/05/17 Narrative: GENERAL: Well-nourished, well-developed middle-aged male patient in [facility]. Appears comfortable, lying in bed. SKIN: Warm and dry. No rash. HEENT: Normocephalic. Atraumatic. Pupils equal and round. Mucous membranes pink and moist. CARDIOVASCULAR: Regular rate and rhythm. No murmur appreciated. RESPIRATORY: No accessory muscle use. Clear to auscultation. Breath sounds equal bilaterally. GASTROINTESTINAL: Abdomen soft, nondistended, mild diffuse right-sided abdominal tenderness to palpation. Normoactive bowel sounds x4. MUSCULOSKELETAL: No obvious deformities. Extremities without clubbing, cyanosis , or edema. NEUROLOGICAL: Awake and alert. No obvious cranial nerve deficits. Motor grossly within normal limits. Moving all extremities spontaneously. Normal speech. Results - Labs CBC & Chem 7: 12/05/17 07:45 12/05/17 07:45 Laboratory Results - last 24 hr 12/04/17 12/04/17 12/04/17 19:50 19:50 19:50 WBC 10.6 RBC 4.39 L Hgb 13.5 Hct 38.5 L MCV 87.8 MCH 30.7 MCHC 34.9 RDW 12.8 Plt Count 323 MPV 7.3 Neut % (Auto) 70.0 Lymph % (Auto) 21.5 Frontier % (Auto) 7.7 Eos % (Auto) 0.1 Baso % (Auto) 0.7 Neut # (Auto) 7.4 Lymph # (Auto) 2.3 Frontier # (Auto) 0.8 Eos # (Auto) 0.0 Baso # (Auto) 0.1 WBC Differential . Differential Comment Auto diff final PT 10.7 INR 1.1 APTT 27.6 Sodium 142 Potassium 3.2 L Chloride 109 H Carbon Dioxide 26.1 Anion Gap 7 BUN 4 L Creatinine 0.75 Estimated GFR Greater than 89 Random Glucose 101 Lactic Acid Calcium 9.0 Total Bilirubin 0.5 AST 31 ALT 37 Alkaline Phosphatase 89 Total Protein 8.1 Albumin 3.6 Lipase 106 Urine Color Urine Clarity Urine pH Ur Specific [place] Urine Protein Urine Glucose (UA) Urine Ketones Urine Occult Blood Urine Nitrate Urine Bilirubin Urine Urobilinogen Ur Leukocyte Esterase Micro UA Comment Urine Culture Comments Blood Type Blood Type Recheck Antibody Screen 12/04/17 12/04/17 12/04/17 19:50 19:50 20:50 WBC RBC Hgb Hct MCV MCH MCHC RDW Plt Count MPV Neut % (Auto) Lymph % (Auto) Frontier % (Auto) Eos % (Auto) Baso % (Auto) Neut # (Auto) Lymph # (Auto) Frontier # (Auto) Eos # (Auto) Baso # (Auto) WBC Differential Differential Comment PT INR APTT Sodium Potassium Chloride Carbon Dioxide Anion Gap BUN Creatinine Estimated GFR Random Glucose Lactic Acid 1.2 Calcium Total Bilirubin AST ALT Alkaline Phosphatase Total Protein Albumin Lipase Urine Color Straw Urine Clarity Clear Urine pH 7.5 Ur Specific [place] 1.008 Urine Protein Negative Urine Glucose (UA) Negative Urine Ketones Negative Urine Occult Blood Negative Urine Nitrate Negative Urine Bilirubin Negative Urine Urobilinogen 0.2 Ur Leukocyte Esterase Negative Micro UA Comment Culture not ind Urine Culture Comments Culture not ind Blood Type A Negative Blood Type Recheck Required Antibody Screen Negative 12/05/17 07:45 WBC 9.0 RBC 4.12 L Hgb 12.7 L Hct 37.0 L MCV 89.7 MCH 30.9 MCHC 34.4 RDW 12.8 Plt Count 286 MPV 7.7 Neut % (Auto) 61.1 Lymph % (Auto) 27.9 Frontier % (Auto) 7.9 Eos % (Auto) 1.8 Baso % (Auto) 1.3 Neut # (Auto) 5.5 Lymph # (Auto) 2.5 Frontier # (Auto) 0.7 Eos # (Auto) 0.2 Baso # (Auto) 0.1 WBC Differential . Differential Comment Auto diff final PT INR APTT Sodium Potassium Chloride Carbon Dioxide Anion Gap BUN Creatinine Estimated GFR Random Glucose Lactic Acid Calcium Total Bilirubin AST ALT Alkaline Phosphatase Total Protein Albumin Lipase Urine Color Urine Clarity Urine pH Ur Specific [place] Urine Protein Urine Glucose (UA) Urine Ketones Urine Occult Blood Urine Nitrate Urine Bilirubin Urine Urobilinogen Ur Leukocyte Esterase Micro UA Comment Urine Culture Comments Blood Type Blood Type Recheck Antibody Screen - Imaging Impressions Abdomen/Pelvis CT 12/04/17 19:33 CONCLUSION: 1. No obstruction, inflammatory changes or other acute abnormality. 2. 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 3. Mild atherosclerotic plaque of the abdominal aorta. No aneurysm. 4. Small, benign cysts of the left kidney. Gallbladder Ultrasound 12/04/17 19:33 CONCLUSION: No acute abnormality. Assessment and Plan - Assessment (1) Intractable abdominal pain Code(s): R10.9 - Unspecified abdominal pain Status: Acute (2) Hypokalemia Code(s): E87.6 - Hypokalemia Status: Acute (3) Acute dehydration Code(s): E86.0 - Dehydration Status: Acute - Plan 41-year-old male with a PMH of Bipolar Disorder, Hepatitis C, Benzo Dependence, h/o Drug Seeking Behavior and Alcohol Abuse-quit 2wks ago who presented to the ER w/ complaints of abdominal pain, nausea/vomiting and diarrhea x3 days. Intractable Abd Pain: c/o abdominal pain, nausea/vomiting and diarrhea, likely Gastroenteritis, although caution w/ h/o Drug Seeking Behavior noted extensively in chart. -CT Abd/Pelvis w/ no acute findings, Gallbladder US negative, images reviewed. -Labs reviewed and essentially unremarkable, LFTs/Lipase normal. -Continue supportive treatment with IVF, antiemetics, and pain control prn -Keep NPO -Check stool studies if any further diarrhea -Patient still with intractable pain, no clear etiology, will consult GI Dehydration: Persistent tachycardia, mildly improved after IVF. -Continue w/ IVF for hydration -U/a negative -monitor I/O. -tachycardia resolved Hypokalemia: K+ 3.2. -Given po KCl replacement -Monitor and replace electrolytes as needed DVT Prophylaxis: SCD/Teds Discharge Planning: Discharge pending further clinical improvement and evaluation by GI.
[2017-12-05 09:21] LABS: Albumin 3.1 g/dL (3.4-5.0); Anion Gap 7 meq/L (5-15); Aspartate Aminotransferase 29 U/L (15-37); Blood Urea Nitrogen 4 mg/dL (7-18); Calcium 8.7 mg/dL (8.5-10.1); Chloride 111 meq/L (98-107); Glomerular Filtration Rate Greater Than 89 mL/min (>89); Glucose,Random 89 mg/dL (74-106); Potassium 3.3 meq/L (3.5-5.1); Sodium 143 meq/L (136-145)
[2017-12-05 09:22] LABS: Alanine Aminotransferase 33 U/L (12-78)
[2017-12-05 09:24] LABS: Alkaline Phosphatase 82 U/L (45-117); Total Protein 7.2 g/dL (6.4-8.2)
[2017-12-05] MEDS: Senna/Docusate Sodium 8.6/50 MG Tablet PO SCH ×2 (09:29→20:49)
--- NOTE | 2017-12-05 12:24 | P.CONGI ---
History of Present Illness Consult date: 12/05/17 Consult reason: Abdominal pain Chief complaint: dehydration, intractable pain History of Present Illness: This is a 41 yo M who presented to the ER with complaints of nausea, vomiting, abdominal pain and diarrhea for the past 3 days. Pt reports right sided abdominal pain, radiates into his back, described as throbbing, pain is constant. States everything makes it worse including urinating and moving. Has not been able to eat anything for a few days. States nausea with multiple episodes of emesis, none since admission, does report multiple episodes of coffee ground emesis at home. Also reports multiple episodes of diarrhea, denies urgency but does report fecal incontinence. Also has noticed dark red blood in his stool. Pt reports chills, no fevers. Has never had EGD. Last colonoscopy was 5 years ago in [place] and states exam was normal at that time. Pt denies any ETOH. Smokes 1 PPD. Has known Hepatitis C, treatment naive. Denies history of present illicit drug use, however previous records indicate pt admitted to using IV Dilaudid on the street and has been found unresponsive next to needles in the past. <Erika Frias - Last Filed: 12/05/17 12:01> Review of Systems Gastrointestinal: Reports abdominal pain, Reports bright, red blood in stools, Reports incontinent of stools, Reports loose stools, Reports nausea, Reports vomiting, Reports vomiting blood <Erika Frias - Last Filed: 12/05/17 12:01> PMFSH - History History Provided By: Patient - Medical History Medical History: Medical History (Last Reviewed 12/04/17 @ 20:03 by Ashley Martinez MD) Hepatitis C Seizures - Surgical History Surgical History: Surgical History (Last Reviewed 12/04/17 @ 20:03 by Ashley Martinez MD) No history of previous surgery - Tobacco History Second Hand Smoke Exposure: No Tobacco Use In Past 30 Days: No Smoking Status: Smoker, status unknown Tobacco Type: Cigarettes - Alcohol History How Often Do You Have a Drink Containing Alcohol: Unable to Obtain - Substance Use History Substance History: No History of Abuse - Travel History Recent Travel in the [place] Within the Last 8 Weeks: No Recent Travel Out of the Country Within the Last 8 Weeks: No - Immunization History Tetanus Immunization: <5 Years Hx Influenza Vaccine This Season: No <Erika Frias - Last Filed: 12/05/17 12:01> - Medical History Medical History: Medical History (Last Reviewed 12/04/17 @ 20:03 by Ashley Martinez MD) Hepatitis C Seizures - Surgical History Surgical History: Surgical History (Last Reviewed 12/04/17 @ 20:03 by Ashley Martinez MD) No history of previous surgery <Elva Leo - Last Filed: 12/05/17 18:08> Medications and Allergies Active Medications: Active Medications Acetaminophen (Tylenol) 650 mg PO Q4H PRN PRN Reason: Temp > 100.4 Hydrocodone Bitart/Acetaminophen ([place] 5/325) 1 tab PO Q4H PRN PRN Reason: PAIN 3-5 Last Admin: 12/05/17 05:28 Dose: 1 tab Al Hydroxide/Mg Hydroxide (Milk Of Magnesia Liq) 30 ml PO Q12H PRN PRN Reason: Mild Constipation Bisacodyl (Dulcolax Supp) 10 mg RECTAL DAILY PRN PRN Reason: SEVERE CONSITIPATION Sodium Chloride (Ns Inj) 1,000 mls @ 100 mls/hr IV.CONT .Q10H [facility] Last Admin: 12/04/17 22:13 Dose: 100 mls/hr Lactulose (Lactulose Liq) 30 ml PO DAILY PRN PRN Reason: SEVERE CONSITIPATION Morphine Sulfate (Morphine Inj) 2 mg IV.PUSH Q4H PRN PRN Reason: PAIN 6-10 Last Admin: 12/05/17 09:28 Dose: 2 mg Ondansetron HCl (Zofran Inj) 4 mg IV.PUSH Q6H PRN PRN Reason: NAUSEA OR VOMITING Senna/Docusate Sodium (Caprice-Colace) 1 tab PO BID [facility] Last Admin: 12/05/17 09:29 Dose: 1 tab Sennosides (Senokot) 17.2 mg PO Q12H PRN PRN Reason: Moderate Constipation Sodium Chloride (Ns Flush) 2 ml IV.FLUSH PRN PRN PRN Reason: FLUSH AFTER USING IV ACCESS Temazepam (Restoril) 15 mg PO HS PRN PRN Reason: INSOMNIA <Erika Frias - Last Filed: 12/05/17 12:01> Active Medications: Active Medications Acetaminophen (Tylenol) 650 mg PO Q4H PRN PRN Reason: Temp > 100.4 Hydrocodone Bitart/Acetaminophen ([place] 5/325) 1 tab PO Q4H PRN PRN Reason: PAIN 3-5 Last Admin: 12/05/17 05:28 Dose: 1 tab Al Hydroxide/Mg Hydroxide (Milk Of Magnesia Liq) 30 ml PO Q12H PRN PRN Reason: Mild Constipation Bisacodyl (Dulcolax Supp) 10 mg RECTAL DAILY PRN PRN Reason: SEVERE CONSITIPATION Sodium Chloride (Ns Inj) 1,000 mls @ 100 mls/hr IV.CONT .Q10H [facility] Last Admin: 12/05/17 13:09 Dose: 100 mls/hr Lactulose (Lactulose Liq) 30 ml PO DAILY PRN PRN Reason: SEVERE CONSITIPATION Morphine Sulfate (Morphine Inj) 2 mg IV.PUSH Q4H PRN PRN Reason: PAIN 6-10 Last Admin: 12/05/17 15:36 Dose: 2 mg Ondansetron HCl (Zofran Inj) 4 mg IV.PUSH Q6H PRN PRN Reason: NAUSEA OR VOMITING Senna/Docusate Sodium (Caprice-Colace) 1 tab PO BID [facility] Last Admin: 12/05/17 09:29 Dose: 1 tab Sennosides (Senokot) 17.2 mg PO Q12H PRN PRN Reason: Moderate Constipation Sodium Chloride (Ns Flush) 2 ml IV.FLUSH PRN PRN PRN Reason: FLUSH AFTER USING IV ACCESS Temazepam (Restoril) 15 mg PO HS PRN PRN Reason: INSOMNIA <Elva Leo - Last Filed: 12/05/17 18:08> Allergies Allergy/AdvReac Type Severity Reaction Status Date / Time fluoxetine Allergy Intermediate Hives Verified 11/22/17 04:49 ketorolac Allergy Intermediate Hives Verified 11/22/17 04:49 penicillin G AdvReac Severe VOMITING Verified 11/22/17 04:49 codeine AdvReac Intermediate Nausea/Vomi Verified 11/22/17 04:49 ting Exam Vital signs: Vital Signs 12/04/17 19:21 12/04/17 21:03 12/04/17 22:10 Temperature 98.3 F Pulse Rate 111 H 94 H 84 Respiratory Rate 18 16 16 Blood Pressure 143/85 H 143/83 H 129/77 Pulse Oximetry 99 100 12/04/17 23:31 12/05/17 00:25 12/05/17 04:00 Temperature 98.6 F 98.5 F Pulse Rate 88 78 Respiratory Rate 16 22 17 Blood Pressure 146/77 H 138/82 Pulse Oximetry 99 98 12/05/17 07:43 12/05/17 11:40 Temperature 97.6 F 98.2 F Pulse Rate 73 68 Respiratory Rate 16 16 Blood Pressure 119/65 119/72 Pulse Oximetry 98 98 Intake & Output 12/04/17 12/05/17 12/05/17 18:59 06:59 18:59 Intake Total 1000 / 1000 Balance 1000 / 1000 Weight 81.647 kg Intake: IV 1000 / 1000 NS Inj 1,000 ML @ Wide Open IV. 1000 / 1000 SIG BOLUS ONE Rx#:[id number] Other: # Voids 2 2 Date of Last Bowel Movement 12/05/17 - Constitutional no acute distress - Routine HEENT Exam Head: Present: normocephalic, atraumatic - Routine Respiratory Exam Absent: accessory muscle use - Routine Cardiovascular Exam Present: RRR - Routine Abdominal Exam Present: soft, normoactive bowel sounds, tenderness (Right sided tenderness ). Absent: distended - Routine Skin Exam Present: dry, warm - Routine Neurological Exam Present: alert, oriented X3 <Erika Frias - Last Filed: 12/05/17 12:01> Vital signs: Vital Signs 12/04/17 19:21 12/04/17 21:03 12/04/17 22:10 Temperature 98.3 F Pulse Rate 111 H 94 H 84 Respiratory Rate 18 16 16 Blood Pressure 143/85 H 143/83 H 129/77 Pulse Oximetry 99 100 12/04/17 23:31 12/05/17 00:25 12/05/17 04:00 Temperature 98.6 F 98.5 F Pulse Rate 88 78 Respiratory Rate 16 22 17 Blood Pressure 146/77 H 138/82 Pulse Oximetry 99 98 12/05/17 07:43 12/05/17 11:40 12/05/17 12:37 Temperature 97.6 F 98.2 F Pulse Rate 73 68 Respiratory Rate 16 16 20 Blood Pressure 119/65 119/72 Pulse Oximetry 98 98 12/05/17 15:12 Temperature 98.2 F Pulse Rate 66 Respiratory Rate 16 Blood Pressure 116/69 Pulse Oximetry 99 Intake & Output 12/04/17 12/05/17 12/05/17 18:59 06:59 18:59 Intake Total 1000 / 1000 1000 / 1000 Balance 1000 / 1000 1000 / 1000 Weight 81.647 kg Intake: IV 1000 / 1000 1000 / 1000 NS Inj 1,000 ML @ 100 mls/hr IV 1000 / 1000 .CONT .Q10H FELIPA Rx#:[id number] NS Inj 1,000 ML @ Wide Open IV. 1000 / 1000 SIG BOLUS ONE Rx#:[id number] Other: # Voids 2 2 Date of Last Bowel Movement 12/05/17 <AhmetElva - Last Filed: 12/05/17 18:08> Results - Labs CBC & Chem 7: 12/05/17 07:45 12/05/17 07:45 Labs: Laboratory Results - last 24 hr 12/04/17 12/04/17 12/04/17 19:50 19:50 19:50 WBC 10.6 RBC 4.39 L Hgb 13.5 Hct 38.5 L MCV 87.8 MCH 30.7 MCHC 34.9 RDW 12.8 Plt Count 323 MPV 7.3 Neut % (Auto) 70.0 Lymph % (Auto) 21.5 [place] % (Auto) 7.7 Eos % (Auto) 0.1 Baso % (Auto) 0.7 Neut # (Auto) 7.4 Lymph # (Auto) 2.3 [place] # (Auto) 0.8 Eos # (Auto) 0.0 Baso # (Auto) 0.1 WBC Differential . Differential Comment Auto diff final PT 10.7 INR 1.1 APTT 27.6 Sodium 142 Potassium 3.2 L Chloride 109 H Carbon Dioxide 26.1 Anion Gap 7 BUN 4 L Creatinine 0.75 Estimated GFR Greater than 89 Random Glucose 101 Lactic Acid Calcium 9.0 Total Bilirubin 0.5 AST 31 ALT 37 Alkaline Phosphatase 89 Total Protein 8.1 Albumin 3.6 Lipase 106 Urine Color Urine Clarity Urine pH Ur Specific [place] Urine Protein Urine Glucose (UA) Urine Ketones Urine Occult Blood Urine Nitrate Urine Bilirubin Urine Urobilinogen Ur Leukocyte Esterase Micro UA Comment Urine Culture Comments Blood Type Blood Type Recheck Antibody Screen 12/04/17 12/04/17 12/04/17 19:50 19:50 20:50 WBC RBC Hgb Hct MCV MCH MCHC RDW Plt Count MPV Neut % (Auto) Lymph % (Auto) [place] % (Auto) Eos % (Auto) Baso % (Auto) Neut # (Auto) Lymph # (Auto) [place] # (Auto) Eos # (Auto) Baso # (Auto) WBC Differential Differential Comment PT INR APTT Sodium Potassium Chloride Carbon Dioxide Anion Gap BUN Creatinine Estimated GFR Random Glucose Lactic Acid 1.2 Calcium Total Bilirubin AST ALT Alkaline Phosphatase Total Protein Albumin Lipase Urine Color Straw Urine Clarity Clear Urine pH 7.5 Ur Specific [place] 1.008 Urine Protein Negative Urine Glucose (UA) Negative Urine Ketones Negative Urine Occult Blood Negative Urine Nitrate Negative Urine Bilirubin Negative Urine Urobilinogen 0.2 Ur Leukocyte Esterase Negative Micro UA Comment Culture not ind Urine Culture Comments Culture not ind Blood Type A Negative Blood Type Recheck Required Antibody Screen Negative 12/05/17 12/05/17 07:45 07:45 WBC 9.0 RBC 4.12 L Hgb 12.7 L Hct 37.0 L MCV 89.7 MCH 30.9 MCHC 34.4 RDW 12.8 Plt Count 286 MPV 7.7 Neut % (Auto) 61.1 Lymph % (Auto) 27.9 [place] % (Auto) 7.9 Eos % (Auto) 1.8 Baso % (Auto) 1.3 Neut # (Auto) 5.5 Lymph # (Auto) 2.5 [place] # (Auto) 0.7 Eos # (Auto) 0.2 Baso # (Auto) 0.1 WBC Differential . Differential Comment Auto diff final PT INR APTT Sodium 143 Potassium 3.3 L Chloride 111 H Carbon Dioxide 25.0 Anion Gap 7 BUN 4 L Creatinine 0.69 Estimated GFR Greater than 89 Random Glucose 89 Lactic Acid Calcium 8.7 Total Bilirubin 0.8 AST 29 ALT 33 Alkaline Phosphatase 82 Total Protein 7.2 D Albumin 3.1 L Lipase Urine Color Urine Clarity Urine pH Ur Specific [place] Urine Protein Urine Glucose (UA) Urine Ketones Urine Occult Blood Urine Nitrate Urine Bilirubin Urine Urobilinogen Ur Leukocyte Esterase Micro UA Comment Urine Culture Comments Blood Type Blood Type Recheck Antibody Screen - Imaging Impressions Abdomen/Pelvis CT 12/04/17 19:33 CONCLUSION: 1. No obstruction, inflammatory changes or other acute abnormality. 2. 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 3. Mild atherosclerotic plaque of the abdominal aorta. No aneurysm. 4. Small, benign cysts of the left kidney. Gallbladder Ultrasound 12/04/17 19:33 CONCLUSION: No acute abnormality. <Erika Frias - Last Filed: 12/05/17 12:01> - Labs CBC & Chem 7: 12/05/17 07:45 12/05/17 07:45 Labs: Laboratory Results - last 24 hr 12/04/17 12/04/17 12/04/17 19:50 19:50 19:50 WBC 10.6 RBC 4.39 L Hgb 13.5 Hct 38.5 L MCV 87.8 MCH 30.7 MCHC 34.9 RDW 12.8 Plt Count 323 MPV 7.3 Neut % (Auto) 70.0 Lymph % (Auto) 21.5 [place] % (Auto) 7.7 Eos % (Auto) 0.1 Baso % (Auto) 0.7 Neut # (Auto) 7.4 Lymph # (Auto) 2.3 [place] # (Auto) 0.8 Eos # (Auto) 0.0 Baso # (Auto) 0.1 WBC Differential . Differential Comment Auto diff final PT 10.7 INR 1.1 APTT 27.6 Sodium 142 Potassium 3.2 L Chloride 109 H Carbon Dioxide 26.1 Anion Gap 7 BUN 4 L Creatinine 0.75 Estimated GFR Greater than 89 Random Glucose 101 Lactic Acid Calcium 9.0 Total Bilirubin 0.5 AST 31 ALT 37 Alkaline Phosphatase 89 Total Protein 8.1 Albumin 3.6 Lipase 106 Urine Color Urine Clarity Urine pH Ur Specific [place] Urine Protein Urine Glucose (UA) Urine Ketones Urine Occult Blood Urine Nitrate Urine Bilirubin Urine Urobilinogen Ur Leukocyte Esterase Micro UA Comment Urine Culture Comments Blood Type Blood Type Recheck Antibody Screen 12/04/17 12/04/17 12/04/17 19:50 19:50 20:50 WBC RBC Hgb Hct MCV MCH MCHC RDW Plt Count MPV Neut % (Auto) Lymph % (Auto) [place] % (Auto) Eos % (Auto) Baso % (Auto) Neut # (Auto) Lymph # (Auto) [place] # (Auto) Eos # (Auto) Baso # (Auto) WBC Differential Differential Comment PT INR APTT Sodium Potassium Chloride Carbon Dioxide Anion Gap BUN Creatinine Estimated GFR Random Glucose Lactic Acid 1.2 Calcium Total Bilirubin AST ALT Alkaline Phosphatase Total Protein Albumin Lipase Urine Color Straw Urine Clarity Clear Urine pH 7.5 Ur Specific [place] 1.008 Urine Protein Negative Urine Glucose (UA) Negative Urine Ketones Negative Urine Occult Blood Negative Urine Nitrate Negative Urine Bilirubin Negative Urine Urobilinogen 0.2 Ur Leukocyte Esterase Negative Micro UA Comment Culture not ind Urine Culture Comments Culture not ind Blood Type A Negative Blood Type Recheck Required Antibody Screen Negative 12/05/17 12/05/17 07:45 07:45 WBC 9.0 RBC 4.12 L Hgb 12.7 L Hct 37.0 L MCV 89.7 MCH 30.9 MCHC 34.4 RDW 12.8 Plt Count 286 MPV 7.7 Neut % (Auto) 61.1 Lymph % (Auto) 27.9 [place] % (Auto) 7.9 Eos % (Auto) 1.8 Baso % (Auto) 1.3 Neut # (Auto) 5.5 Lymph # (Auto) 2.5 [place] # (Auto) 0.7 Eos # (Auto) 0.2 Baso # (Auto) 0.1 WBC Differential . Differential Comment Auto diff final PT INR APTT Sodium 143 Potassium 3.3 L Chloride 111 H Carbon Dioxide 25.0 Anion Gap 7 BUN 4 L Creatinine 0.69 Estimated GFR Greater than 89 Random Glucose 89 Lactic Acid Calcium 8.7 Total Bilirubin 0.8 AST 29 ALT 33 Alkaline Phosphatase 82 Total Protein 7.2 D Albumin 3.1 L Lipase Urine Color Urine Clarity Urine pH Ur Specific [place] Urine Protein Urine Glucose (UA) Urine Ketones Urine Occult Blood Urine Nitrate Urine Bilirubin Urine Urobilinogen Ur Leukocyte Esterase Micro UA Comment Urine Culture Comments Blood Type Blood Type Recheck Antibody Screen - Imaging Impressions Abdomen/Pelvis CT 12/04/17 19:33 CONCLUSION: 1. No obstruction, inflammatory changes or other acute abnormality. 2. 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 3. Mild atherosclerotic plaque of the abdominal aorta. No aneurysm. 4. Small, benign cysts of the left kidney. Gallbladder Ultrasound 12/04/17 19:33 CONCLUSION: No acute abnormality. <Elva eLo - Last Filed: 12/05/17 18:08> Assessment and Plan - Plan Assessment: - Abdominal pain- right sided- constant x 3 days- described as throbbing- radiation to back- states everything makes it worse including urination and movement. Has not eaten in a few days to pain and vomiting CT abdomen and pelvis W IV contrast --> No obstruction, inflammatory changes or other acute abnormality. 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 Mild atherosclerotic plaque of the abdominal aorta. No aneurysm. Small, benign cysts of the left kidney. Gallbladder US --> No acute abnormality - Nausea, vomiting x 3 days- none since admission- reports multiple episodes of coffee ground emesis. Has never had EGD. Denies ETOH. Smokes 1 PPD. Denies NSAID use H/H stable. - Diarrhea x 3 days- multiple episodes- denies urgency reports fecal incontinence. Also complaining of dark red blood in his stool. Reports chills denies fevers Last colonoscopy 5 years ago in [facility] normal exam - Hepatitis C, treatment naive- denies IV drug use however, records indicate pt admitted to using IV Dilaudid on the street has also been found unresponsive next to needles in the past. Also reports high risk sexual behaviors. Denies having tattoos. Genotype 1a, quant greater than 5 million LFTs currently WNL Plan: EGD and colonoscopy tomorrow Obtain consent Clear liquids today Mag Citrate prep NPO after MN Stool studies Hep C treatment outpatient Further recommendations to follow Pt has been seen and examined by myself and Dr. Leo and this note is written on her behalf <Erika Frias - Last Filed: 12/05/17 12:01> - Attending Attestation seen, examined agree with above no further episodes of diarrhea today , if recurrent stool studies tenderness [id number] normal on ct denies recent use of nsaids, antibiotics, sick contacts, recent travel denies consumptions of suspicious foods <Elva Leo - Last Filed: 12/05/17 18:08>
[2017-12-05] MEDS: Sod Chloride 0.9% Inj 1,000 ML IV.CONT SCH ×3 (13:09→20:50)
[2017-12-05] MEDS ORDERED: Magnesium Citrate Liq 300 ML Bottle PO ONE ×2 (16:00→18:00)
[2017-12-06] MEDS: Sod Chloride 0.9% Inj 1,000 ML IV.CONT SCH ×4 (00:42→23:36)
[2017-12-06] MEDS: Morphine Inj 4 MG/ML Vial IV.PUSH PRN ×5 (00:42→23:35)
[2017-12-06] MEDS ORDERED: Lidocaine PF 1% Inj 5 ML Syringe INFILTRATN ONE (12:00)
--- NOTE | 2017-12-06 12:56 | GIPROC ---
[facility] [address] [facility]. [facility], [address] COLONOSCOPY PROCEDURE REPORT EXAM DATE: 12/06/2017 PATIENT NAME: Logan Morejon MR #: [id number] BIRTHDATE: 1975 ENDOSCOPIST: Elva Leo MD ORDER #: [id number] VEHICLE RETURN ASSOCIATE: Brenda Tripathi Powell, Bianca, Heidy Jo, and Ezio Hancock STATUS: inpatient INDICATIONS: The patient is a 41 yr old male here for a colonoscopy due to abdominal pain PROCEDURE PERFORMED: Colonoscopy, diagnostic MEDICATIONS: None and Per Anesthesia. PREP QUALITY: poor PREP TYPE:Other: ESTIMATED BLOOD LOSS: None CONSENT: The patient understands the risks and benefits of the procedure and understands that these risks include, but are not limited to: sedation, allergic reaction, infection, perforation and/or bleeding. Alternative means of evaluation and treatment include, among others: physical exam, x-rays, and/or surgical intervention. The patient elects to proceed with this endoscopic procedure. medical equipment was checked for proper function. Hand hygiene and appropriate measures for infection prevention was taken. After the risks, benefits and alternatives of the procedure were thoroughly explained, Informed consent was verified, confirmed and timeout was successfully executed by the treatment team. A digital exam revealed external hemorrhoids The endoscope was introduced through the anus and advanced to the cecum, which was identified by both the appendix and ileocecal valve. The instrument was then slowly withdrawn as the colon was fully examined. COLON FINDINGS: Poor prep. Retroflexed views revealed internal hemorrhoids and Retroflexed views revealed small internal hemorrhoids The scope was then completely withdrawn from the patient and the procedure terminated. ADVERSE EVENTS: There were no complications. IMPRESSIONS: 1. Poor prep 2. Retroflexed views revealed internal hemorrhoids 3. Retroflexed views revealed small internal hemorrhoids 4. Revealed external hemorrhoids RECOMMENDATIONS: 1. Probiotics from any [facility] or health food store 2. Yearly rectal exams RECALL: Return 3 months Colonoscopy Elva Leo MD eSigned: Elva Leo MD 12/06/2017 12:56 PM cc:
--- NOTE | 2017-12-06 12:58 | GIPROC ---
[facility] [address] [facility]. 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 TOPICAL ANESTHETIC: none CONSENT: The patient understands the risks and benefits of the procedure and understands that these risks include, but are not limited to: sedation, allergic reaction, infection, perforation and/or bleeding. Alternative means of evaluation and treatment include, among others: physical exam, x-rays, and/or surgical intervention. The patient elects to proceed with this endoscopic procedure. medical equipment was checked for proper function. Hand hygiene and appropriate measures for infection prevention was taken. After the risks, benefits and alternatives of the procedure were thoroughly explained, Informed consent was verified, confirmed and timeout was successfully executed by the treatment team. The patient was anesthetized with topical anesthesia and the EC-[id number] (Pedi C) endoscope was introduced through the mouth and advanced to the second portion of the duodenum. Retroflexed views revealed a hiatal hernia The gastroscope was then slowly withdrawn and removed. Duodenitis duodenum second portion-biopsy gastritis antrum-biopsy irregular z line-biopsy. ADVERSE EVENTS: There were no complications. IMPRESSIONS: 1. Duodenitis duodenum second portion-biopsy gastritis antrum-biopsy irregular z line-biopsy 2. Retroflexed views revealed a hiatal hernia RECOMMENDATIONS: 1. Await biopsy results. Biopsy results will not be ready for 7-10 days. If you don't hear from us in two weeks, call our office for biopsy results. 2. Anti-reflux regimen 3. Mri abdomen/pelvis PATIENT CONDITION: stable DISPOSITION: Inpatient REPEAT EXAM: Return 3 years EGD Elva Leo MD eSigned: Elva Leo MD 12/06/2017 12:58 PM cc:
[2017-12-06] MEDS: Senna/Docusate Sodium 8.6/50 MG Tablet PO SCH ×2 (13:04→23:36)
[2017-12-06 16:19] LABS: Anion Gap 7 meq/L (5-15); Blood Urea Nitrogen 5 mg/dL (7-18); Calcium 9.3 mg/dL (8.5-10.1); Carbon Dioxide 28.7 meq/L (21.0-32.0); Chloride 105 meq/L (98-107); Glomerular Filtration Rate Greater Than 89 mL/min (>89); Glucose,Random 79 mg/dL (74-106); Potassium 3.7 meq/L (3.5-5.1); Sodium 141 meq/L (136-145)
--- NOTE | 2017-12-06 18:16 | P.PN ---
Subjective Interval history: Follow-up for abdominal pain, nausea/vomiting, diarrhea. Patient is seen after EGD/colonoscopy today. The patient reports continued constant diffuse right- sided abdominal pain, currently rated 10/10, requesting his IV pain medication. He reports nausea and one episode of vomiting after his EGD today. He denies any bowel movement since last night after bowel prep. He denies fevers but does report chills. Denies any other medical complaints. He states he does have an appetite and would like to try some food tonight if possible. He is currently awaiting to go for MRI. Physical Exam Vital signs: Vital Signs 12/05/17 20:34 12/06/17 00:00 12/06/17 08:00 Temperature 98.8 F 98.2 F Pulse Rate 63 59 L Respiratory Rate 20 16 16 Blood Pressure 109/65 124/75 Pulse Oximetry 99 99 12/06/17 12:39 12/06/17 16:00 Temperature 98.3 F 98.5 F Pulse Rate 74 63 Respiratory Rate 18 16 Blood Pressure 155/98 H 129/78 Pulse Oximetry 100 99 Intake & Output 12/05/17 12/06/17 12/06/17 18:59 06:59 18:59 Intake Total 1000 / 1000 3000 / 3000 100 / 100 Output Total 450 / 450 Balance 1000 / 1000 3000 / 3000 -350 / -350 Intake: IV 1000 / 1000 3000 / 3000 NS Inj 1,000 ML @ 100 mls/hr IV 1000 / 1000 3000 / 3000 .CONT .Q10H [facility] Rx#:[id number] Anesthesia Amount 100 / 100 Output: Urine 450 / 450 Estimated Blood Loss 0 / 0 Other: # Voids 2 1 Date of Last Bowel Movement 12/05/17 12/06/17 # Bowel Movements 1 Narrative: GENERAL: Well-nourished, well-developed middle-aged male patient in [facility]. Appears comfortable, lying in bed. SKIN: Warm and dry. No rash. HEENT: Normocephalic. Atraumatic. Pupils equal and round. Mucous membranes pink and moist. CARDIOVASCULAR: Regular rate and rhythm. No murmur appreciated. RESPIRATORY: No accessory muscle use. Clear to auscultation. Breath sounds equal bilaterally. GASTROINTESTINAL: Abdomen soft, nondistended, mild diffuse right-sided abdominal tenderness to palpation. Normoactive bowel sounds x4. MUSCULOSKELETAL: No obvious deformities. Extremities without clubbing, cyanosis , or edema. NEUROLOGICAL: Awake and alert. No obvious cranial nerve deficits. Motor grossly within normal limits. Moving all extremities spontaneously. Normal speech. Results - Labs CBC & Chem 7: 12/05/17 07:45 12/06/17 14:57 Laboratory Results - last 24 hr 12/05/17 12/06/17 12/06/17 19:57 08:22 14:57 Sodium 141 Potassium 3.7 Chloride 105 Carbon Dioxide 28.7 Anion Gap 7 BUN 5 L Creatinine 0.72 Estimated GFR Greater than 89 POC Glucose 175 H 82 Random Glucose 79 Calcium 9.3 - Imaging Abdomen/Pelvis CT 12/04/17 19:33 CONCLUSION: 1. No obstruction, inflammatory changes or other acute abnormality. 2. 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 3. Mild atherosclerotic plaque of the abdominal aorta. No aneurysm. 4. Small, benign cysts of the left kidney. Gallbladder Ultrasound 12/04/17 19:33 CONCLUSION: No acute abnormality. Assessment and Plan - Assessment (1) Intractable abdominal pain Code(s): R10.9 - Unspecified abdominal pain Status: Acute (2) Hypokalemia Code(s): E87.6 - Hypokalemia Status: Acute (3) Acute dehydration Code(s): E86.0 - Dehydration Status: Acute - Plan 41-year-old male with a PMH of Bipolar Disorder, Hepatitis C, Benzo Dependence, h/o Drug Seeking Behavior and Alcohol Abuse-quit 2wks ago who presented to the ER w/ complaints of abdominal pain, nausea/vomiting and diarrhea x3 days. Intractable Abd Pain: c/o abdominal pain, nausea/vomiting and diarrhea, likely Gastroenteritis, although caution w/ h/o Drug Seeking Behavior noted extensively in chart. -CT Abd/Pelvis w/ no acute findings, Gallbladder US negative, images reviewed. -Labs reviewed and essentially unremarkable, LFTs/Lipase normal. -Continue supportive treatment with IVF, antiemetics, and pain control prn -Check stool studies if any further diarrhea -Patient still with intractable pain, no clear etiology, therefore consulted GI -S/p EGD/colonoscopy today 12/06, showed duodenitis, gastritis, irregular Z line, and internal/external hemorrhoids -Abdominal MRI ordered by GI -Liquid diet for now Dehydration: Persistent tachycardia, mildly improved after IVF. -Continue w/ IVF for hydration -U/a negative -monitor I/O. -tachycardia resolved Hypokalemia: K+ 3.2. -Given po KCl replacement, K 3.7 today -Monitor and replace electrolytes as needed DVT Prophylaxis: SCD/Teds; avoid chemoprophylaxis with procedure Discharge Planning: Discharge pending further clinical improvement and clearance by GI.
[2017-12-06] MEDS ORDERED: Gadobutrol PF 10 MMOL/10 ML Vial (for RAD) IV.SIG ONE (19:18)
--- NOTE | 2017-12-06 20:16 | MR ---
EXAM DATE: 12/06/2017 8:04 PM EDT AGE/SEX: 41 years / Male INDICATIONS: . Right sided abdominal pain for 5 days. CLINICAL DATA: This is the patient's subsequent encounter. Patient reports that signs and symptoms h ave been present for 4 - 6 days and indicates a pain score of 3/10. MEDICAL/SURGICAL HISTORY: Hepatitis C. Seizures. None. COMPARISON: [facility] [place], CT ABDOMEN & PELVIS W CONTRAST, 12/04/2017. . TECHNIQUE: Multiplanar, multisequence images of the abdomen were obtained prior to and following adm inistration of 8 ml Gadavist (gadobutrol) contrast as a single exam dose with dynamic multiphase tech nique. FINDINGS: Liver: The liver is homogeneous and normal in signal intensity. Parenchymal enhancement is normal wit h no focal abnormalities. There is no biliary ductal dilatation. Gallbladder: No gallstones seen. Spleen: The spleen is unremarkable. Pancreas: The pancreas is unremarkable. Adrenals: The adrenal glands appear normal. Kidneys: 1.2 cm mid zone and 2.0 cm lower pole cysts are seen of the left kidney. Both kidneys otherw ise appear normal with symmetric nephrograms and no solid focal parenchymal abnormalities. There is n o hydronephrosis on either side. Retroperitoneum: The aorta is unremarkable. Chronic IVC occlusion with collateral vessels again noted .. Post Contrast: No abnormal areas of enhancement seen. There is a subacute and probably substantially healed fracture laterally of the right seventh rib. CONCLUSION: 1. No acute abnormality seen within the abdomen or pelvis. 2. Benign cysts of the left kidney. 3. 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 4. Subacute appearing and probably at least partially healed fracture laterally of the right seventh rib. Electronically signed by: Mack Noriega MD 12/06/2017 8:15 PM EDT
--- NOTE | 2017-12-06 23:09 | ECG ---
Date Performed: 12/06/2017 Time Performed: 07:33:11 PTAGE: 41 years EKG: Sinus rhythm WITH SINUS ARRHYTHMIA ST ELEVATION, PROBABLY EARLY REPOLARIZATION BORDERLINE ECG Since the PREVIOUS TRACING , no significant change noted DOCTOR: Parth Leiva Interpretating Date/Time 12/06/2017 23:07:21
[2017-12-07] MEDS: Morphine Inj 4 MG/ML Vial IV.PUSH PRN ×2 (04:59→08:45)
[2017-12-07] MEDS: Senna/Docusate Sodium 8.6/50 MG Tablet PO SCH (08:24)
[2017-12-07] MEDS: Sod Chloride 0.9% Inj 1,000 ML IV.CONT SCH (08:25)
--- NOTE | 2017-12-07 09:12 | P.PN ---
Subjective Interval history: Follow-up for gastritis, duodenitis, abdominal pain. Patient reports his symptoms are improving. Denies any further nausea or vomiting today. Reports only 2 small bowel movements since yesterday. Denies fevers or chills. Abdominal pain improving. He is tolerating clear liquid diet, advance to soft foods for breakfast. He has no other medical complaints at this time. Physical Exam Vital signs: Vital Signs 12/06/17 12:39 12/06/17 16:00 12/06/17 20:00 Temperature 98.3 F 98.5 F 98.4 F Pulse Rate 74 63 74 Respiratory Rate 18 16 16 Blood Pressure 155/98 H 129/78 112/68 Pulse Oximetry 100 99 99 12/06/17 23:57 12/07/17 05:08 12/07/17 07:21 Temperature 98.1 F 98.2 F Pulse Rate 62 54 L 61 Respiratory Rate 16 15 18 Blood Pressure 116/69 125/72 124/67 Pulse Oximetry 99 97 98 Intake & Output 12/06/17 12/07/17 12/07/17 18:59 06:59 18:59 Intake Total 1100 / 1100 1000 / 1000 1000 / 1000 Output Total 450 / 450 Balance 650 / 650 1000 / 1000 1000 / 1000 Intake: IV 1000 / 1000 1000 / 1000 1000 / 1000 NS Inj 1,000 ML @ 100 mls/hr IV 1000 / 1000 1000 / 1000 .CONT .Q10H [facility] Rx#:[id number] Anesthesia Amount 100 / 100 Output: Urine 450 / 450 Estimated Blood Loss 0 / 0 Other: # Voids 1 Date of Last Bowel Movement 12/06/17 12/06/17 # Bowel Movements 1 Narrative: GENERAL: Well-nourished, well-developed middle-aged male patient in [facility]. Appears comfortable, lying in bed. SKIN: Warm and dry. No rash. HEENT: Normocephalic. Atraumatic. Pupils equal and round. Mucous membranes pink and moist. CARDIOVASCULAR: Regular rate and rhythm. No murmur appreciated. RESPIRATORY: No accessory muscle use. Clear to auscultation. Breath sounds equal bilaterally. GASTROINTESTINAL: Abdomen soft, nondistended, minimal diffuse right-sided thoracic and abdominal tenderness to palpation; although nontender when distracted and pressing with stethoscope during auscultation. Normoactive bowel sounds x4. MUSCULOSKELETAL: No obvious deformities. Extremities without clubbing, cyanosis , or edema. NEUROLOGICAL: Awake and alert. No obvious cranial nerve deficits. Motor grossly within normal limits. Moving all extremities spontaneously. Normal speech. Results - Labs CBC & Chem 7: 12/05/17 07:45 12/06/17 14:57 Laboratory Results - last 24 hr 12/06/17 12/06/17 14:57 21:25 Sodium 141 Potassium 3.7 Chloride 105 Carbon Dioxide 28.7 Anion Gap 7 BUN 5 L Creatinine 0.72 Estimated GFR Greater than 89 POC Glucose 87 Random Glucose 79 Calcium 9.3 - Imaging Impressions Abdomen MRI 12/06/17 12:25 CONCLUSION: 1. No acute abnormality seen within the abdomen or pelvis. 2. Benign cysts of the left kidney. 3. 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 4. Subacute appearing and probably at least partially healed fracture laterally of the right seventh rib. - Procedures 12/06 - EGD/colonoscopy showed gastritis, duodenitis, internal/external hemorrhoids. Assessment and Plan - Assessment (1) Intractable abdominal pain Code(s): R10.9 - Unspecified abdominal pain Status: Acute (2) Hypokalemia Code(s): E87.6 - Hypokalemia Status: Acute (3) Acute dehydration Code(s): E86.0 - Dehydration Status: Acute - Plan 41-year-old male with a PMH of Bipolar Disorder, Hepatitis C, Benzo Dependence, h/o Drug Seeking Behavior and Alcohol Abuse-quit 2wks ago who presented to the ER w/ complaints of abdominal pain, nausea/vomiting and diarrhea x3 days. Intractable Abd Pain with Gastritis/Duodenitis: c/o abdominal pain, nausea/ vomiting and diarrhea, likely Gastroenteritis, although caution w/ h/o Drug Seeking Behavior noted extensively in chart. -CT Abd/Pelvis w/ no acute findings, Gallbladder US negative, images reviewed. -Labs reviewed and essentially unremarkable, LFTs/Lipase normal. -Continue supportive treatment with IVF, antiemetics, and pain control prn -Check stool studies if any further diarrhea -Patient still with intractable pain, no clear etiology, therefore consulted GI -S/p EGD/colonoscopy 12/06, showed duodenitis, gastritis, irregular Z line, and internal/external hemorrhoids -Started on Protonix 40mg daily -Abdominal MRI reviewed, showed no acute findings, subacute right 7th rib fracture possibly contributing to pain -Patient tolerated liquid diet, advanced to soft foods for breakfast, will discharge if tolerates oral intake Dehydration: Persistent tachycardia, mildly improved after IVF. -Given w/ IVF for hydration -U/a negative -monitor I/O. -tachycardia resolved Hypokalemia: K+ 3.2. -Given po KCl replacement, K 3.7 -Monitor and replace electrolytes as needed DVT Prophylaxis: SCD/Teds Discharge Planning: Plan to discharge today if tolerates breakfast.
--- NOTE | 2017-12-07 17:57 | P.DS ---
Date of admission: 12/04/17 21:17 Primary care physician: No Primary Care Physician Anticipated date of discharge: 12/07/17 Brief History from admission: This is a 41-year-old male with a PMH of Bipolar Disorder, Hepatitis C, Benzo Dependence, h/o Drug Seeking Behavior and Alcohol Abuse-quit 2wks ago who presented to the ER w/ complaints of abdominal pain, nausea/vomiting and diarrhea x3 days. Denies fever or chills. No sick contacts. On arrival, BP 143/85, HR 111, O2 sat 99% on RA, Afebrile. CBC unremarkable. INR 1.1. Chemistry essentially unremarkable except for K+ 3.2. UA negative. CT Abdomen/ Pelvis with no obstruction, chronic IVC occlusion with collaterals again noted. Gallbladder US negative. S/p Morphine x2 in ER w/ minimal improvement in pain complaints and persistent tachycardia. DS: Diagnosis - Discharge Diagnosis (1) Intractable abdominal pain Status: Acute (2) Hypokalemia Status: Acute (3) Acute dehydration Status: Acute (4) Gastritis and duodenitis Status: Acute DS: Medications - Discharge Medications Prescriptions: pantoprazole 40 mg PO DAILY #30 tab DS: Summary Hospital Course: 41-year-old male with a PMH of Bipolar Disorder, Hepatitis C, Benzo Dependence, h/o Drug Seeking Behavior and Alcohol Abuse-quit 2wks ago who presented to the ER w/ complaints of abdominal pain, nausea/vomiting and diarrhea x3 days. Intractable Abd Pain with Gastritis/Duodenitis: c/o abdominal pain, nausea/ vomiting and diarrhea, likely Gastroenteritis, although caution w/ h/o Drug Seeking Behavior noted extensively in chart. CT Abd/Pelvis w/ no acute findings , Gallbladder US negative, images reviewed. Labs reviewed and essentially unremarkable, LFTs/Lipase normal. Given supportive treatment with IVF, antiemetics, and pain control prn. No further diarrhea or witnessed vomiting throughout admission. Patient still with intractable pain requiring IV morphine , no clear etiology, therefore consulted GI. S/p EGD/colonoscopy 12/06, showed duodenitis, gastritis, irregular Z line, and internal/external hemorrhoids. Started on Protonix 40mg daily. Abdominal MRI reviewed, showed no acute findings , subacute right 7th rib fracture possibly contributing to pain. Patient tolerated liquid diet, advanced to soft foods for breakfast, and patient tolerated well. Stable for discharge. Outpatient f/up with GI for biopsy results. - Time Spent with Patient Total time spent providing and/or coordinating discharge services: Less than 30 minutes - Quality: VTE Deep Vein Thrombosis/Pulmonary Embolism Present on Admission: No Exam Vital signs: Vital Signs 12/06/17 20:00 12/06/17 23:57 12/07/17 05:08 Temperature 98.4 F 98.1 F Pulse Rate 74 62 54 L Respiratory Rate 16 16 15 Blood Pressure 112/68 116/69 125/72 Pulse Oximetry 99 99 97 12/07/17 07:21 Temperature 98.2 F Pulse Rate 61 Respiratory Rate 18 Blood Pressure 124/67 Pulse Oximetry 98 Intake & Output 12/06/17 12/07/17 12/07/17 18:59 06:59 18:59 Intake Total 1100 / 1100 1000 / 1000 1000 / 1000 Output Total 450 / 450 Balance 650 / 650 1000 / 1000 1000 / 1000 Intake: IV 1000 / 1000 1000 / 1000 1000 / 1000 NS Inj 1,000 ML @ 100 mls/hr IV 1000 / 1000 1000 / 1000 .CONT .Q10H [facility] Rx#:[id number] Anesthesia Amount 100 / 100 Output: Urine 450 / 450 Estimated Blood Loss 0 / 0 Other: # Voids 1 Date of Last Bowel Movement 12/06/17 12/06/17 # Bowel Movements 1 Results Procedures completed during hospitalization: 12/06 - EGD/colonoscopy showed gastritis, duodenitis, internal/external hemorrhoids. Completed studies during hospitalization: Pending at discharge 12/06/17 13:49 Surgical [PTH] Routine Labs on day of discharge: Labs from last 24 hours 12/07/17 12/06/17 08:26 21:25 POC Glucose 89 87 - Impressions ITS Impressions Abdomen/Pelvis CT 12/04/17 19:33 CONCLUSION: 1. No obstruction, inflammatory changes or other acute abnormality. 2. 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 3. Mild atherosclerotic plaque of the abdominal aorta. No aneurysm. 4. Small, benign cysts of the left kidney. Gallbladder Ultrasound 12/04/17 19:33 CONCLUSION: No acute abnormality. Abdomen MRI 12/06/17 12:25 CONCLUSION: 1. No acute abnormality seen within the abdomen or pelvis. 2. Benign cysts of the left kidney. 3. 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 4. Subacute appearing and probably at least partially healed fracture laterally of the right seventh rib. Discharge Plan - Discharge Disposition Patient Disposition: 01 Discharge Home - Discharge Condition Condition: Stable - Discharge Order Discharge Orders: Discharge Order (Routine); Ordered 12/07/17 Ordered By: Marry Bae - Discharge Details Anticipated Discharge Date: 12/07/17 Discharge Comment: Ok to discharge if tolerates breakfast. - Physicians Team Primary Care Provider: Primary Care Jeanne Reese Attending Provider: James Singh Other Providers: Elva Leo MD
== END 2017-12-07 14:58 | disposition home or self-care (01) ==
LOC: NEPE 19:01 → NEDA 19:01 → NEPFCDU 22:46
PROVIDERS: ADMIT Hospitalist; ATTEND Hospitalist
PROC: PANENDO (2017-12-06 11:40)
PROC: COLONOS (2017-12-06 11:40)
DX: E87.6 Hypokalemia; I82.220 Acute embolism and thrombosis of inferior vena cava; B19.20 Unspecified viral hepatitis C without hepatic coma; R68.83 Chills (without fever); K29.70 Gastritis, unspecified, without bleeding; R56.9 Unspecified convulsions; K29.80 Duodenitis without bleeding; E86.0 Dehydration; R19.7 Diarrhea, unspecified; F31.9 Bipolar disorder, unspecified; K64.4 Residual hemorrhoidal skin tags; R10.9 Unspecified abdominal pain; F17.210 Nicotine dependence, cigarettes, uncomplicated; K44.9 Diaphragmatic hernia without obstruction or gangrene; K64.8 Other hemorrhoids; R11.2 Nausea with vomiting, unspecified